=== PATIENT | male | born 1935 | race Caucasian/White ===

== ENCOUNTER 2018-12-23 10:27 | Inpatient (IN) | payer OTHER ==
[2018-12-23] MEDS ORDERED: ACETAMINOPHEN 1000 MG/100 ML VIAL (NON FORMULARY) IVPB ONE (11:28)
[2018-12-23] MEDS ORDERED: ACETAMINOPHEN INJECTION 100 ML IVPB ONE (11:37)
--- NOTE | 2018-12-23 11:45 | PDOC ---
Documentation entered by Tomer Gilbert SCRIBE, acting as scribe for Robert Carvalho MD. Robert Carvalho MD: This documentation has been prepared by the Vladimir jessica Xhesika, SCRIBE, under my direction and personally reviewed by me in its entirety. I confirm that the documentation accurately reflects all work, treatment, procedures, and medical decision making performed by me. History of Present Illness - General Chief Complaint: Redness To Affected Area Stated Complaint: RIGHT LEG PAIN Time Seen by Provider: 12/23/18 10:53 History Source: Patient Exam Limitations: No Limitations - History of Present Illness Initial Comments: 12/23/18 11:31 The patient is an 83 year old male with a significant PMH of HTN, NIDDM, Afib, CAD, [place], BPH, Dementia, DVT, malignant neoplasm of skin, and Hard of Hearing who presents to the emergency department [facility] from [facility] for several months of RLE pain, erythema and edema. Patient notes he is being seen at a wound care clinic (does not remember location), but they have only been applying bandages to his wounds. Pt denies being on any abx. Today, pt states that the pain in his R foot became excruciating, prompting his visit to the ED. The patient denies chest pain, shortness of breath, headache and dizziness, fever, chills, cough, nausea, vomiting. Allergies: NKDA Past History - Past Medical History Allergies/Adverse Reactions: Allergies Allergy/AdvReac Type Severity Reaction Status Date / Time No Known Allergies Allergy Verified 12/23/18 11:08 Home Medications: Ambulatory Orders Ascorbic Acid 500 mg PO DAILY 12/23/18 Aspirin 81 mg PO DAILY 12/23/18 Furosemide [Lasix] 20 mg PO DAILY 12/23/18 Gabapentin [Neurontin] 300 mg PO DAILY 12/23/18 Insulin Glargine,Hum.rec.anlog [Basaglar Kwikpen U-100] 100 unit SQ HS 12/23/18 Levothyroxine [Synthroid -] 112 mcg PO DAILY 12/23/18 Metoprolol Succinate 50 mg PO DAILY 12/23/18 Multivit-Min/Iron/Folic Acid/K [Multi-Day Plus Minerals Tablet] 1 tab PO DAILY 12/23/18 Oxycodone HCl/Acetaminophen [Percocet 5-325 mg Tablet] 1 tab PO DAILY 12/23/18 Warfarin Sodium 4 mg PO HS 12/23/18 - Psycho Social/Smoking Cessation Hx Smoking History: Never smoked Hx Alcohol Use: No Drug/Substance Use Hx: No Review of Systems - Review of Systems Able to Perform ROS?: Yes Comments:: 12/23/18 11:36 GENERAL/CONSTITUTIONAL: No fever or chills. No weakness. HEAD, EYES, EARS, NOSE AND THROAT: No change in vision. No ear pain or discharge. No sore throat. CARDIOVASCULAR: No chest pain, no shortness of breath, no loss of consciousness RESPIRATORY: No cough, wheezing, or hemoptysis. GASTROINTESTINAL: No nausea, vomiting, diarrhea or constipation. GENITOURINARY: No dysuria, frequency, or change in urination. MUSCULOSKELETAL: No joint or muscle swelling or pain. No neck or back pain. SKIN: + RLE pain, erythema and edema NEUROLOGIC: No vertigo, no change in strength/sensation. ENDOCRINE: No increased thirst. No abnormal weight change. HEMATOLOGIC/LYMPHATIC: No anemia, easy bleeding, or history of blood clots. ALLERGIC/IMMUNOLOGIC: No hives or skin allergy. *Physical Exam - Vital Signs Last Vital Signs Temp Pulse Resp BP Pulse Ox 98 F 98 H 17 142/85 99 12/23/18 10:49 12/23/18 10:49 12/23/18 10:49 12/23/18 10:49 12/23/18 10:49 - Physical Exam Comments: 12/23/18 11:37 GENERAL: Awake, alert, and fully oriented, in no acute distress. HEAD: No signs of trauma EYES: PERRLA, EOMI, sclera anicteric, conjunctiva clear ENT: Auricles normal inspection, hearing grossly normal, nares patent, oropharynx clear without exudates. Moist mucosa NECK: Nontender, no stepoffs, Normal ROM, supple, no lymphadenopathy, JVD, or masses LUNGS: Breath sounds equal, clear to auscultation bilaterally. No wheezes, and no crackles HEART: Regular rate and rhythm, normal S1 and S2, no murmurs, rubs or gallops ABDOMEN: Soft, nontender, normoactive bowel sounds. No guarding, no rebound. No masses EXTREMITIES: BLE erythema extending from foot to cadet R>L, R foot with crusting wounds, induration without fluctuance, also ulcer on R cadet with serosanguinous drainage, DP pulses diminished bilaterally NEUROLOGICAL: Cranial nerves II through XII intact. 5/5 strength and sensation in all extremities, Normal speech, normal gait, normal cerebellar function SKIN: Warm, Dry, normal turgor, no rashes or lesions noted. ED Treatment Course - LABORATORY CBC & Chemistry Diagram: 12/23/18 11:51 12/23/18 11:51 Medical Decision Making - Medical Decision Making 12/23/18 11:48 83 M with chronic RLE redness and swelling, now with worsening pain. On exam, pt has severe cellulitis or R foot extending up cadet, with open ulcers. No fluctuance to suggest abscess. Pt has h/o DVT, so will obtain venous dopplers. Also has h/o afib with diminished pulses, so will obtain arterial doppler as well. - Labs - Arterial + venous dopplers - XR RLE - Abx - Admit 12/23/18 15:26 Venous doppler negative for DVT. Arterial doppler with athersclerosis but no occlusion. XR negative for gas Vanc/zosyn given. 12/23/18 15:47 Pt admitted to hospitalist Discharge - Discharge Information Problems reviewed: Yes Clinical Impression/Diagnosis: Cellulitis, Leg swelling, Foot pain - Admission Yes - Follow up/Referral Referrals: Tank Florentino [Primary Care Provider] - - Patient Discharge Instructions - Post Discharge Activity
[2018-12-23] MEDS ORDERED: VANCOMYCIN 1 GM in D5W (PRE-DOCKED) 1,000 MG/250 ML IVPB ONE (11:49)
[2018-12-23] MEDS ORDERED: PIPERACILLIN/TAZOB 4.5 GM 4.5 GM/100 ML BAG IVPB ONE ×2 (11:49→11:56)
[2018-12-23] MEDS ORDERED: VANCOMYCIN 1 GRAM (PRE-DOCKED) 1,000 MG/250 ML BAG IVPB ONE (11:56)
[2018-12-23 12:07] LABS: BASO % 0.5 % (0-2.0); EOS % 3.1 % (0-4.5); HEMATOCRIT 32.1 % (35.4-49); HEMOGLOBIN 10.7 GM/dL (11.7-16.9); MCH 31.2 pg (25.7-33.7); MCHC 33.4 g/dl (32.0-35.9); MEAN CELL VOLUME 93.6 fl (80-96); MEAN PLT VOLUME 7.4 fl (7.5-11.1); MONO % 9.9 % (3.8-10.2); NEUT % 66.5 % (42.8-82.8); PLATELET COUNT 154 K/MM3 (134-434); RBC 3.43 M/mm3 (4.00-5.60); RDW 15.1 % (11.9-15.9); WHITE BLOOD COUNT 4.8 K/mm3 (4.0-10.0)
[2018-12-23 12:20] LABS: INR 1.54 (0.83-1.09); PROTHROMBIN TIME (PATIENT) 18.3 SEC (9.7-13.0)
[2018-12-23 12:36] LABS: ALBUMIN 3.2 g/dl (3.4-5.0); BILIRUBIN,TOTAL 0.9 mg/dL (0.2-1); BLOOD UREA NITROGEN 17.6 mg/dL (7-18); CALCIUM 8.7 mg/dL (8.5-10.1); CREATININE 1.4 mg/dL (0.55-1.3)
--- NOTE | 2018-12-23 15:04 | EKG ---
Test Reason : Blood Pressure : / mmHG Vent. Rate : 087 BPM Atrial Rate : 117 BPM P-R Int : 000 ms QRS Dur : 092 ms QT Int : 388 ms P-R-T Axes : 000 020 040 degrees QTc Int : 466 ms POOR DATA QUALITY, INTERPRETATION MAY BE ADVERSELY AFFECTED ATRIAL FIBRILLATION CANNOT RULE OUT ANTERIOR INFARCT , AGE UNDETERMINED ABNORMAL ECG NO PREVIOUS ECGS AVAILABLE Confirmed by ALBERT KEARNEY, ROBERTO ([id number]) on 12/23/2018 3:04:39 PM Referred By: Confirmed By:ROBERTO PRICE MD
--- NOTE | 2018-12-23 16:48 | HP ---
CHIEF COMPLAINT: RLE pain PCP: Unknown From [facility] HISTORY OF PRESENT ILLNESS: 83M w/ pmhx significant for HTN, IDDM, Afib (on Coumadin), CAD, WI, BPH, dementia, DVT, malignant neoplasm of the skin, difficulty hearing presents in the ED for worsening RLE pain. States he has had chronic b/l leg pain, redness, ulcers, and swelling for at least the past year and currently goes to a wound care clinic at [facility] for routine care. Pt presents in the hospital today mainly for worsening pain in the RLE over the past 3 days making him unable to ambulate with is rolling walker. Also states that at the wound care clinic, they have only done dressing changes at least once a month. Denies ever taking antibiotics in the past. Denie recent trauma to his R leg. Admits to taking Tylenol PRN for the pain, but with minimal symptomatic relief. Currently, he lives at [facility] and takes his daily medication administered daily by an employee of the facility. Says he has seen a vascular surgeon from [place] in the past, but does not remember the name. Denies oleary/d, f/c, recent falls, chest pain, sob, urinary/bowel symptoms. Admits to some abdominal distension that started about 3 months ago. ER course was notable for: (1) VS stable, WBC wnl, Cr 1.4, CRP 5.7, Lac wnl (2) IV Vanc/Zosyn (3) Imaging studies: * R Tib/fib xray: vascular calcifications, otherwise unremarkable. * R Foot/ankle xray: Some attempted calcaneal spurring, otherwise unremarkable. * R arterial duplex: Mod atherosclerotic disease but no hemodynamically significant stenosis. * R venous duplex: No DVT. Recent Travel: Denies PAST MEDICAL HISTORY: As per HPI PAST SURGICAL HISTORY: R hip surgery Spine surgery Social History: Smoking: Denies Alcohol: Denies Drugs: Denies Lives in [facility] Retired; used to work in [employer] ; has 2 children Allergies No Known Allergies Allergy (Verified 12/23/18 11:08) HOME MEDICATIONS: Home Medications Medication Instructions Recorded Ascorbic Acid 500 mg PO DAILY 12/23/18 Aspirin 81 mg PO DAILY 12/23/18 Furosemide [Lasix] 20 mg PO DAILY 12/23/18 Gabapentin [Neurontin] 300 mg PO DAILY 12/23/18 Insulin Glargine,Hum.rec.anlog 100 unit SQ HS 12/23/18 [Basaglar Kwikpen U-100] Levothyroxine [Synthroid -] 112 mcg PO DAILY 12/23/18 Metoprolol Succinate 50 mg PO DAILY 12/23/18 Multivit-Min/Iron/Folic Acid/K 1 tab PO DAILY 12/23/18 [Multi-Day Plus Minerals Tablet] Oxycodone HCl/Acetaminophen 1 tab PO DAILY 12/23/18 [Percocet 5-325 mg Tablet] Warfarin Sodium 4 mg PO HS 12/23/18 REVIEW OF SYSTEMS CONSTITUTIONAL: Absent: fever, chills, diaphoresis, generalized weakness, malaise, loss of appetite, weight change HEENT: Absent: rhinorrhea, nasal congestion, throat pain, throat swelling, difficulty swallowing, mouth swelling, ear pain, eye pain, visual changes CARDIOVASCULAR: Absent: chest pain, syncope, palpitations, irregular heart rate, lightheadedness , peripheral edema RESPIRATORY: Absent: cough, shortness of breath, dyspnea with exertion, orthopnea, wheezing, stridor, hemoptysis GASTROINTESTINAL: Absent: abdominal pain, abdominal distension, nausea, vomiting, diarrhea, constipation, melena, hematochezia GENITOURINARY: Absent: dysuria, frequency, urgency, hesitancy, hematuria, flank pain, genital pain MUSCULOSKELETAL: +R lower extremity pain/redness/swelling Absent: myalgia, arthralgia, joint swelling, back pain, neck pain SKIN: Absent: rash, itching, pallor HEMATOLOGIC/IMMUNOLOGIC: Absent: easy bleeding, easy bruising, lymphadenopathy, frequent infections ENDOCRINE: Absent: unexplained weight gain, unexplained weight loss, heat intolerance, cold intolerance NEUROLOGIC: Absent: headache, focal weakness or paresthesias, dizziness, unsteady gait, seizure, mental status changes, bladder or bowel incontinence PSYCHIATRIC: Absent: anxiety, depression, suicidal or homicidal ideation, hallucinations. PHYSICAL EXAMINATION Vital Signs - 24 hr 12/23/18 12/23/18 10:49 15:03 Temperature 98 F 99.2 F Pulse Rate 98 H Pulse Rate [ 75 Radial] Respiratory 17 18 Rate Blood Pressure 142/85 Blood Pressure 136/93 [Right Arm] O2 Sat by Pulse 99 98 Oximetry (%) GENERAL: Pleasant, elderly male. NAD. AAOx3. HEENT: AT/NC. EOMI. Facial symmetry noted. Without teeth. NECK: Normal ROM. Supple, NT. No LAD, JVD. LUNGS: CTA B/L. No wheezes noted. Symmetric chest rise. HEART: Irregularly, irregular. No murmurs noted. ABDOMEN: Soft, NT. Mod abdominal distension. MUSCULOSKELETAL: 5/5 muscle strength in b/l upper extremities. 5/5 hip flexion, knee flexion/extension. +3/5 R plantarflexion/dorsiflexion. +4/5 L plantarflexion/dorsiflexion. Limited ROM in R plantar/dorsiflexion due to pain. UPPER EXTREMITIES: 2+ pulses, warm, well-perfused. No cyanosis. No clubbing. No peripheral edema. LOWER EXTREMITIES: 2+ dorsalis pedis pulses, warm, well-perfused. NEUROLOGICAL: Cranial nerves II-XII intact. Normal speech. Normal gait. PSYCHIATRIC: Cooperative. Good eye contact. Appropriate mood and affect. SKIN: R lower extremity- tender to touch, with superficial ulcers on both plantar and dorsal surface of R foot. +yellow crusting seen. Onychomycosis. Erythema/redness from mid-cadet extending down to toes, R >> L. +swelling, sensation intact. L lower extremity- scaly skin, onychomycosis. Erythema/ redness from mid-cadet extending down to toes. +swelling, sensation intact. Laboratory Results - last 24 hr 12/23/18 12/23/18 12/23/18 11:51 11:51 11:51 WBC 4.8 RBC 3.43 L Hgb 10.7 L Hct 32.1 L MCV 93.6 MCH 31.2 MCHC 33.4 RDW 15.1 Plt Count 154 MPV 7.4 L Absolute Neuts (auto) 3.2 Neutrophils % 66.5 Lymphocytes % 20.0 Monocytes % 9.9 Eosinophils % 3.1 Basophils % 0.5 Nucleated RBC % 0 ESR PT with INR INR PTT (Actin FS) 36.8 H Sodium 141 Potassium 4.0 Chloride 105 Carbon Dioxide 29 Anion Gap 6 L BUN 17.6 Creatinine 1.4 H Est GFR (CKD-EPI)AfAm 53.85 Est GFR (CKD-EPI)NonAf 46.46 Random Glucose 94 Lactic Acid Calcium 8.7 Total Bilirubin 0.9 AST 16 ALT 17 Alkaline Phosphatase 112 C-Reactive Protein Total Protein 6.0 L Albumin 3.2 L 12/23/18 12/23/18 12/23/18 11:51 11:51 11:51 WBC RBC Hgb Hct MCV MCH MCHC RDW Plt Count MPV Absolute Neuts (auto) Neutrophils % Lymphocytes % Monocytes % Eosinophils % Basophils % Nucleated RBC % ESR PT with INR 18.30 H INR 1.54 H PTT (Actin FS) Sodium Potassium Chloride Carbon Dioxide Anion Gap BUN Creatinine Est GFR (CKD-EPI)AfAm Est GFR (CKD-EPI)NonAf Random Glucose Lactic Acid 1.0 Calcium Total Bilirubin AST ALT Alkaline Phosphatase C-Reactive Protein 5.7 H Total Protein Albumin 12/23/18 11:51 WBC RBC Hgb Hct MCV MCH MCHC RDW Plt Count MPV Absolute Neuts (auto) Neutrophils % Lymphocytes % Monocytes % Eosinophils % Basophils % Nucleated RBC % ESR 55 H PT with INR INR PTT (Actin FS) Sodium Potassium Chloride Carbon Dioxide Anion Gap BUN Creatinine Est GFR (CKD-EPI)AfAm Est GFR (CKD-EPI)NonAf Random Glucose Lactic Acid Calcium Total Bilirubin AST ALT Alkaline Phosphatase C-Reactive Protein Total Protein Albumin ASSESSMENT/PLAN: 83M w/ pmhx significant for HTN, IDDM, Afib (on Coumadin), CAD, WI, BPH, dementia, DVT, malignant neoplasm of the skin, difficulty hearing presents in the ED for worsening RLE pain. #RLE cellulitis; Does not clinically appear to be septic; WBC wnl, afebrile -Given empiric IV Vanc/Zosyn in the ED -R knee and foot xray unremarkable for soft tissue air; no crepitus on exam. Also low suspicion of compartment syndrome. -BCx pending -Wound care consulted -ID consulted; agree to cont with IV Vanc/Zosyn -Cont home Perocet for pain #IDDM; hold home meds -Levemir 15U HS -BGMs/ISS ACHS #DEISY vs. CKD; Cr 1.4, baseline unknown -call PCP for baseline Cr #Abd distension; Abd exam did not show signs of acute abd, but will order CTAP as this is new distension per patient that started only 3 months ago. #Hx of Afib; EKG showed Afib, HR in 80s. Rate controlled. -Given subtherapeutic INR, will give 5 mg tonight Cont home med: Toprol XL 50 QD #Neuropathy; Cont home med: Gabapentin 300 #Prophylaxis DVT- On Coumadin FEN -PO hydration -recheck lytes in AM -Diabetic diet Dispo -admit to med-surg Visit type - Emergency Visit Emergency Visit: Yes ED Registration Date: 12/23/18 Care time: The patient presented to the Emergency Department on the above date and was hospitalized for further evaluation of their emergent condition. - New Patient This patient is new to me today: Yes Date on this admission: 12/23/18 - Critical Care Critical Care patient: No ATTENDING PHYSICIAN STATEMENT I saw and evaluated the patient. I reviewed the resident's note and discussed the case with the resident. I agree with the resident's findings and plan as documented. SUBJECTIVE: OBJECTIVE: ASSESSMENT AND PLAN:
[2018-12-23] MEDS ORDERED: WARFARIN NA 2 MG TABLET (UD) PO SCH (18:00)
--- NOTE | 2018-12-23 18:08 | PN ---
Teaching Attending Note Name of Resident: Geno Chavarria ATTENDING PHYSICIAN STATEMENT I saw and evaluated the patient. I reviewed the resident's note and discussed the case with the resident. I agree with the resident's findings and plan as documented. SUBJECTIVE: CC: R leg pain HPI : 83 y/o man withh/o HTN, Dm, CAD, s/p NV, DVT, A fib, BPH, skin cancer, hearing difficulty, and chronic LE erythema and edema who presented with worsening pain in R leg and foot x past 2 weeks. pain started to get worse, 2 weeks ago an d continued to worsen. He reports purulent discharge, but no fever. he gets dressing changes biweekly at [facility] wound care clinic. he denies recent trauma. he lives [place]. He reprots his abdomen is becoming more distended in past 3 months OBJECTIVE: NAD, awake, alert, cooperative HEENT: MMM, no facial droop, round equal pupils, everted L lower eye lid. CV: RRR, no MRG . Lungs: CTAB Abd: protuberant, TTP in LLQ. NL BS . no organomegaly Ext: b/l legs with erythema from below the knee to ankles. R leg with increased warmth over erythematous areas, small areas of skin oozing yellowish liquid . R foot with erythema on front with increased tenderness, superficial ulcers. DP 2+ b/l. nl sensation over feet. can't move toes on R due to pain, but moves ankle up and down with limited range of motion. yellow crusted areas on foot . EKG reviewed. A fib with rate of 87. no st or TW changes. NL axis ASSESSMENT AND PLAN: 83 y/o man with h/o HTN, Dm, CAD, s/p NV, DVT, A fib, BPH, skin cancer, hearing difficulty, and chronic LE erythema and edema who presented with worsening pain in R leg and foot x past 2 weeks 1- Cellullitis of R LE: No signs of sepsis. No signs of compartment syndrome . pulses and sensation are preserved. - received vanco and zosyn in ER . - will cont zosyn. Cr cl 47 %, vanco received at 1 pm, will last him 24 hrs, for ID to decide in Am . - resident to call ID - blood cx sent - wound care eval 2- Dm : low sugar at presentation . will repeat . - will cont lower dose of Levemir at HS - SSI 3- DEISY vs CKD: not sure of his cr baseline - will hold lasix today - need to confirm his Cr base line with JESSICA KEARNEY 4- Increased abdominal distention x [address] scan 5- H/o A fib: on coumadin, with subtherpeutic INR. - will give 5 mg today - cont toprol Dispo: HLOC
[2018-12-23] MEDS: WARFARIN NA 5 MG TABLET (UD) PO SCH (18:55)
[2018-12-23] MEDS ORDERED: PIPERACILLIN/TAZOBACTAM 3.375 GM VIAL IVPB ONE (20:40)
[2018-12-23] MEDS ORDERED: INSULIN (NOVOLOG) ASPART 100 UNITS/ML 10ML VIAL ONE (20:40)
[2018-12-23] MEDS ORDERED: DEXTROSE 5%-WATER - 50 ML IVPB ONE (20:40)
[2018-12-23] MEDS: INSULIN SLIDING SCALE (NOVOLOG) 1 VIAL SQ SCH (21:54)
[2018-12-23] MEDS: INSULIN (LEVEMIR) 100 UNITS/ML UNITS SQ SCH (21:56)
[2018-12-23] MEDS: PIPERACILLIN/TAZOB 3.375 GM 3.375 GM in DEXTROSE 5%-WATER - 50 ML IVPB SCH (22:00)
[2018-12-24] MEDS ORDERED: PIPERACILLIN/TAZOBACTAM 3.375 GM VIAL IVPB ONE ×2 (02:39→09:29)
[2018-12-24] MEDS ORDERED: DEXTROSE 5%-WATER - 50 ML IVPB ONE ×2 (02:39→09:29)
[2018-12-24] MEDS: PIPERACILLIN/TAZOB 3.375 GM 3.375 GM in DEXTROSE 5%-WATER - 50 ML IVPB SCH ×3 (03:00→16:08)
[2018-12-24] MEDS: INSULIN SLIDING SCALE (NOVOLOG) 1 VIAL SQ SCH ×3 (06:06→17:05)
[2018-12-24] MEDS: LEVOTHYROXINE NA 112 MCG TABLET (FP) PO SCH (06:36)
[2018-12-24 08:49] LABS: BASO % 0.6 % (0-2.0); EOS % 4.2 % (0-4.5); HEMOGLOBIN 10.7 GM/dL (11.7-16.9); LYMPH % 22.7 % (8-40); MCH 31.4 pg (25.7-33.7); MCHC 33.5 g/dl (32.0-35.9); MEAN CELL VOLUME 93.6 fl (80-96); MEAN PLT VOLUME 7.6 fl (7.5-11.1); MONO % 7.1 % (3.8-10.2); NEUT % 65.4 % (42.8-82.8); PLATELET COUNT 164 K/MM3 (134-434); RBC 3.42 M/mm3 (4.00-5.60); WHITE BLOOD COUNT 4.1 K/mm3 (4.0-10.0)
[2018-12-24 09:33] LABS: INR 1.36 (0.83-1.09); PROTHROMBIN TIME (PATIENT) 16.1 SEC (9.7-13.0)
[2018-12-24 09:39] LABS: BLOOD UREA NITROGEN 15.2 mg/dL (7-18); CALCIUM 8.4 mg/dL (8.5-10.1); CREATININE 1.4 mg/dL (0.55-1.3); POTASSIUM 4.1 mmol/L (3.5-5.1)
[2018-12-24] MEDS ORDERED: FUROSEMIDE 20 MG TABLET (FP) PO SCH (10:00)
[2018-12-24] MEDS: GABAPENTIN 300 MG CAPSULE (FP) PO SCH (10:21)
[2018-12-24] MEDS: oxyCODONE HCL 5 MG TABLET PO PRN (10:21)
[2018-12-24] MEDS: ASPIRIN 81 MG CHEWABLE TABLETS PO SCH (10:21)
[2018-12-24] MEDS: MULTIVITAMINS THER W-MINERALS COMBO TABLET (FP) PO SCH (10:21)
[2018-12-24] MEDS: ASCORBIC ACID 500 MG TABLET (FP) PO SCH (10:21)
--- NOTE | 2018-12-24 10:32 | CONSULT ---
- Consultation REQUESTING PROVIDER: CONSULT REQUEST: We have been asked to surgically evaluate this patient for Rt leg wounds/cellulitis PCP:Melvin Louis HISTORY OF PRESENT ILLNESS: 83yo M was consulted to vascular/wound service for evaluation of RLE wounds and cellulitis. Pt has some baseline dementia/memory issues so history was limited. Pt states that he has has chronic wound issues on his RLE for several years, he was going to [facility] wound care clinic, but didn't really feel it was helping. Unsure if pt continues to go that wound care clinic. Pt states that the pain and redness has gotten worse and was sent to the ED from his shelter. Pt denies any history of vascular disease or surgery. Pt denies tobacco use. PMHx: Afib, HTN, Hypothyroidism, DM Home Medications Medication Instructions Recorded Ascorbic Acid 500 mg PO DAILY 12/23/18 Aspirin 81 mg PO DAILY 12/23/18 Furosemide [Lasix] 20 mg PO DAILY 12/23/18 Gabapentin [Neurontin] 300 mg PO DAILY 12/23/18 Insulin Glargine,Hum.rec.anlog 100 unit SQ HS 12/23/18 [Basaglar Kwikpen U-100] Levothyroxine [Synthroid -] 112 mcg PO DAILY 12/23/18 Metoprolol Succinate 50 mg PO DAILY 12/23/18 Multivit-Min/Iron/Folic Acid/K 1 tab PO DAILY 12/23/18 [Multi-Day Plus Minerals Tablet] Oxycodone HCl/Acetaminophen 1 tab PO DAILY 12/23/18 [Percocet 5-325 mg Tablet] Warfarin Sodium 4 mg PO HS 12/23/18 Allergies Allergy/AdvReac Type Severity Reaction Status Date / Time No Known Allergies Allergy Verified 12/23/18 11:08 PHYSICAL EXAM: GENERAL: Awake, alert, in no acute distress. HEAD: Normal with no signs of trauma. EYES: PERRL, sclera anicteric, conjunctiva clear. NECK: Normal ROM LUNGS: Breathing comfortably No accessory muscle use. HEART: Irregularly irregular UPPER EXTREMITIES: 2+ pulses, warm, well-perfused. No cyanosis. No peripheral edema. LOWER EXTREMITIES: dopplarable pulses, warm, well-perfused. No calf tenderness. RLE +1 edema, healing ulceration posterior calf, erythema from distal knee down , dorsal foot shows chronic skin changes, ulcerations, scaling (similar to venous stasis dermatitis) NEUROLOGICAL: Normal speech, gait not observed. PSYCH: Cooperative. Good eye contact. Appropriate mood and affect. SKIN: Warm, dry, normal turgor, no rashes or lesions noted. Vital Signs Temperature 98.6 F 12/24/18 06:25 Pulse Rate 79 12/24/18 06:25 Respiratory Rate 18 12/24/18 06:25 Blood Pressure 127/67 12/24/18 06:25 O2 Sat by Pulse Oximetry (%) 98 12/23/18 21:00 Lab Results WBC 4.1 K/mm3 (4.0-10.0) 12/24/18 08:08 RBC 3.42 M/mm3 (4.00-5.60) L 12/24/18 08:08 Hgb 10.7 GM/dL (11.7-16.9) L 12/24/18 08:08 Hct 32.0 % (35.4-49) L 12/24/18 08:08 MCV 93.6 fl (80-96) 12/24/18 08:08 MCHC 33.5 g/dl (32.0-35.9) 12/24/18 08:08 RDW 15.0 % (11.9-15.9) 12/24/18 08:08 Plt Count 164 K/MM3 (134-434) 12/24/18 08:08 Sodium 139 mmol/L (136-145) 12/24/18 08:08 Potassium 4.1 mmol/L (3.5-5.1) 12/24/18 08:08 Chloride 105 mmol/L (98-107) 12/24/18 08:08 Carbon Dioxide 24 mmol/L (21-32) 12/24/18 08:08 Anion Gap 10 MMOL/L (8-16) 12/24/18 08:08 BUN 15.2 mg/dL (7-18) 12/24/18 08:08 Creatinine 1.4 mg/dL (0.55-1.3) H 12/24/18 08:08 Random Glucose 84 mg/dL (74-106) 12/24/18 08:08 Calcium 8.4 mg/dL (8.5-10.1) L 12/24/18 08:08 INR 1.36 (0.83-1.09) H 12/24/18 08:30 Problem List - Problems (1) Cellulitis Assessment/Plan: Plan -no need for acute surgical intervention at this time -continue abx as per med/ID, would recommend compression dressing once cellulitis resolved, for now just do dry clean dressing. -offered to pt to come to [facility] wound care clinic as was not satisified with [facility], pt stated he would consider. -please contact vascular team if any changes. Pt discussed with Dr. Santos, who agrees with plan Code(s): L03.90 - CELLULITIS, UNSPECIFIED (2) Venous stasis dermatitis of right lower extremity Code(s): I87.2 - VENOUS INSUFFICIENCY (CHRONIC) (PERIPHERAL)
[2018-12-24] MEDS ORDERED: VANCOMYCIN 1 GRAM (PRE-DOCKED) 1,000 MG/250 ML BAG IVPB SCH (13:00)
[2018-12-24 13:17] VITALS: BMI 24.6
--- NOTE | 2018-12-24 14:21 | PN ---
Progress Note, Physician History of Present Illness: ID CONSULT DICTATED CELLULITIS LE CHRONIC VENOUS STASIS DERMATITIS AZOTEMIA NIDDM AWAIT C/S EMPIRIC VANCOMYCIN/ CEFTRIAXONE LOCAL WOUND CARE - Current Medication List Current Medications: Active Medications Ascorbic Acid (Vitamin C -) 500 mg PO DAILY [facility] Last Admin: 12/24/18 10:21 Dose: 500 mg Aspirin (Asa -) 81 mg PO DAILY [facility] Last Admin: 12/24/18 10:21 Dose: 81 mg Gabapentin (Neurontin -) 300 mg PO DAILY [facility] Last Admin: 12/24/18 10:21 Dose: 300 mg Vancomycin HCl (Vancomycin (Pre-Docked)) 1,000 mg in 250 mls @ 166.667 mls/hr IVPB Q24H DANIELA; Protocol Piperacillin Sod/Tazobactam (Sod 3.375 gm/ Dextrose) 50 mls @ 100 mls/hr IVPB Q6H DANIELA; Protocol Piperacillin Sod/Tazobactam (Sod 3.375 gm/ Dextrose) 50 mls @ 100 mls/hr IVPB Q6H-IV DANIELA; Protocol Stop: 12/24/18 15:29 Last Admin: 12/24/18 10:24 Dose: 100 mls/hr Insulin Aspart (Novolog Vial Sliding Scale -) 1 vial SQ ACHS [facility]; Protocol Last Admin: 12/24/18 12:27 Dose: Not Given Insulin Detemir (Levemir Vial) 15 units SQ HS [facility] Last Admin: 12/23/18 21:56 Dose: Not Given Levothyroxine Sodium (Synthroid -) 112 mcg PO DAILY@0700 [facility] Last Admin: 12/24/18 06:36 Dose: 112 mcg Metoprolol Succinate (Toprol Xl -) 50 mg PO DAILY [facility] Last Admin: 12/24/18 10:21 Dose: 50 mg Multivitamins/Minerals (Theragran-M) 1 each PO DAILY [facility] Last Admin: 12/24/18 10:21 Dose: 1 each Oxycodone HCl (Roxicodone -) 5 mg PO Q24H PRN PRN Reason: pain 4-6 Last Admin: 12/24/18 10:21 Dose: 5 mg Warfarin Sodium (Coumadin -) 5 mg PO DAILY@1800 [facility] Last Admin: 12/23/18 18:55 Dose: 5 mg - Objective Vital Signs: Vital Signs Temperature 98.6 F 12/24/18 06:25 Pulse Rate 79 12/24/18 06:25 Respiratory Rate 18 12/24/18 06:25 Blood Pressure 127/67 12/24/18 06:25 O2 Sat by Pulse Oximetry (%) 98 12/23/18 21:00 Labs: CBC, BMP 12/24/18 08:08 12/24/18 08:08 INR, PTT INR 1.36 (0.83-1.09) H 12/24/18 08:30
[2018-12-24] MEDS ORDERED: DEXTROSE 5%-WATER 100 ML IVPB ONE (15:00)
[2018-12-24] MEDS: CEFTRIAXONE 2 GM in DEXTROSE 5%-WATER 100 ML IVPB SCH (15:02)
--- NOTE | 2018-12-24 15:14 | PN ---
Physical Exam: SUBJECTIVE: Patient seen and examined 83M w/ pmhx significant for HTN, IDDM, Afib (on Coumadin), CAD, SD, BPH, dementia, DVT, malignant neoplasm of the skin, difficulty hearing presents in the ED for worsening RLE pain. Currently, pt is stable, no issues, c/o or symptoms. Admits to pain on the right foot but otherwise in usual state of health. Afebrile. OBJECTIVE: Vital Signs Period Temp Pulse Resp BP Sys/Quarles Pulse Ox Last 24 Hr 98.0 F-98.8 F 79-95 18-20 127-147/57-88 96-98 GENERAL: The patient is awake, alert, and fully oriented, in no acute distress. EYES: PERRL, extraocular movements intact ENT: moist mucous membranes. NECK: supple. No LAD, no carotid bruit LUNGS: Breath sounds equal, clear to auscultation bilaterally, no wheezes, no crackles, no accessory muscle use. HEART: Regular rate and irregular rhythm, S1, S2 without murmur, rub or gallop. ABDOMEN: Distended, Soft, nontender, normoactive bowel sounds, no guarding EXTREMITIES: 2+ pulses, warm, RLE: erythematous, swollen, and dry w/ ulceration on the plantar surface, medial ankle and posterior leg. LLE: erythamatous, swollen NEUROLOGICAL: Cranial nerves II through XII grossly intact. SKIN: Warm, dry, normal turgor, Laboratory Results - last 24 hr CBC,CMP WBC 4.1 K/mm3 (4.0-10.0) 12/24/18 08:08 RBC 3.42 M/mm3 (4.00-5.60) L 12/24/18 08:08 Hgb 10.7 GM/dL (11.7-16.9) L 12/24/18 08:08 Hct 32.0 % (35.4-49) L 12/24/18 08:08 MCV 93.6 fl (80-96) 12/24/18 08:08 MCH 31.4 pg (25.7-33.7) 12/24/18 08:08 MCHC 33.5 g/dl (32.0-35.9) 12/24/18 08:08 RDW 15.0 % (11.9-15.9) 12/24/18 08:08 Plt Count 164 K/MM3 (134-434) 12/24/18 08:08 MPV 7.6 fl (7.5-11.1) 12/24/18 08:08 Absolute Neuts (auto) 2.7 K/mm3 (1.5-8.0) 12/24/18 08:08 Neutrophils % 65.4 % (42.8-82.8) 12/24/18 08:08 Lymphocytes % 22.7 % (8-40) 12/24/18 08:08 Monocytes % 7.1 % (3.8-10.2) 12/24/18 08:08 Eosinophils % 4.2 % (0-4.5) 12/24/18 08:08 Basophils % 0.6 % (0-2.0) 12/24/18 08:08 Nucleated RBC % 0 % (0-0) 12/24/18 08:08 ESR 55 mm/hr (0-20) H 12/23/18 11:51 Sodium 139 mmol/L (136-145) 12/24/18 08:08 Potassium 4.1 mmol/L (3.5-5.1) 12/24/18 08:08 Chloride 105 mmol/L (98-107) 12/24/18 08:08 Carbon Dioxide 24 mmol/L (21-32) 12/24/18 08:08 Anion Gap 10 MMOL/L (8-16) 12/24/18 08:08 BUN 15.2 mg/dL (7-18) 12/24/18 08:08 Creatinine 1.4 mg/dL (0.55-1.3) H 12/24/18 08:08 Est GFR (CKD-EPI)AfAm 53.85 12/24/18 08:08 Est GFR (CKD-EPI)NonAf 46.46 12/24/18 08:08 POC Glucometer 106 UNITS (80-120) 12/24/18 12:17 Random Glucose 84 mg/dL (74-106) 12/24/18 08:08 Lactic Acid 1.0 mmol/L (0.4-2.0) 12/23/18 11:51 Calcium 8.4 mg/dL (8.5-10.1) L 12/24/18 08:08 Total Bilirubin 0.9 mg/dL (0.2-1) 12/23/18 11:51 AST 16 U/L (15-37) 12/23/18 11:51 ALT 17 U/L (13-61) 12/23/18 11:51 Alkaline Phosphatase 112 U/L (45-117) 12/23/18 11:51 C-Reactive Protein 5.7 MG/DL (0.00-0.3) H 12/23/18 11:51 Total Protein 6.0 g/dl (6.4-8.2) L 12/23/18 11:51 Albumin 3.2 g/dl (3.4-5.0) L 12/23/18 11:51 Active Medications Home Medications Medication Instructions Recorded Ascorbic Acid 500 mg PO DAILY 12/23/18 Aspirin 81 mg PO DAILY 12/23/18 Furosemide [Lasix] 20 mg PO DAILY 12/23/18 Gabapentin [Neurontin] 300 mg PO DAILY 12/23/18 Insulin Glargine,Hum.rec.anlog 15 unit SQ HS 12/23/18 [Basaglar Kwikpen U-100] Levothyroxine [Synthroid -] 112 mcg PO AM 12/23/18 Metoprolol Succinate 50 mg PO DAILY 12/23/18 Multivit-Min/Iron/Folic Acid/K 1 tab PO DAILY 12/23/18 [Multi-Day Plus Minerals Tablet] Oxycodone HCl/Acetaminophen 1 tab PO DAILY 12/23/18 [Percocet 5-325 mg Tablet] Warfarin Sodium 4 mg PO HS 12/23/18 Current Medications Ascorbic Acid (Vitamin C -) 500 mg PO DAILY [facility] Last Admin: 12/24/18 10:21 Dose: 500 mg Aspirin (Asa -) 81 mg PO DAILY [facility] Last Admin: 12/24/18 10:21 Dose: 81 mg Gabapentin (Neurontin -) 300 mg PO DAILY [facility] Last Admin: 12/24/18 10:21 Dose: 300 mg Vancomycin HCl (Vancomycin (Pre-Docked)) 1,000 mg in 250 mls @ 166.667 mls/hr IVPB Q24H [facility]; Protocol Ceftriaxone Sodium 2 gm/ (Dextrose) 100 mls @ 200 mls/hr IVPB DAILY [facility]; Protocol Last Admin: 12/24/18 15:02 Dose: 200 mls/hr Insulin Aspart (Novolog Vial Sliding Scale -) 1 vial SQ ACHS [facility]; Protocol Last Admin: 12/24/18 12:27 Dose: Not Given Insulin Detemir (Levemir Vial) 15 units SQ HS [facility] Last Admin: 12/23/18 21:56 Dose: Not Given Levothyroxine Sodium (Synthroid -) 112 mcg PO DAILY@0700 [facility] Last Admin: 12/24/18 06:36 Dose: 112 mcg Metoprolol Succinate (Toprol Xl -) 50 mg PO DAILY [facility] Last Admin: 12/24/18 10:21 Dose: 50 mg Multivitamins/Minerals (Theragran-M) 1 each PO DAILY [facility] Last Admin: 12/24/18 10:21 Dose: 1 each Oxycodone HCl (Roxicodone -) 5 mg PO Q24H PRN PRN Reason: pain 4-6 Last Admin: 12/24/18 10:21 Dose: 5 mg Warfarin Sodium (Coumadin -) 5 mg PO DAILY@1800 [facility] Last Admin: 12/23/18 18:55 Dose: 5 mg Microbiology 12/23/18 11:51 Blood - Peripheral Venous Blood Culture - Preliminary NO GROWTH OBTAINED AFTER 24 HOURS, INCUBATION TO CONTINUE FOR 4 DAYS. 12/23/18 11:51 Blood - Peripheral Venous Blood Culture - Preliminary NO GROWTH OBTAINED AFTER 24 HOURS, INCUBATION TO CONTINUE FOR 4 DAYS. ASSESSMENT/PLAN: 83M w/ pmhx significant for HTN, IDDM, Afib (on Coumadin), CAD, SD, BPH, dementia, DVT, malignant neoplasm of the skin, difficulty hearing presents in the ED for worsening RLE pain. #RLE cellulitis; WBC wnl, afebrile, no tachy -Given empiric IV Vanc D2 and ceftriaxone D1- as per ID -R knee and foot xray- negative -Also low suspicion of compartment syndrome. -BCx- no growth -Wound care consulted- no surgery at this time, continue abx as per med/ID, would recommend compression dressing once cellulitis resolved, for now just do dry clean dressing. f/u outpt at the [facility] -Vanco trough friday 1 pm #IDDM; hold home meds -Levemir 15U HS -BGMs/ISS ACHS #DEISY vs. CKD; Cr 1.4, baseline unknown -call PCP for baseline Cr #Abd distension -new distension per patient that started only 3 months ago. -Abd exam did not show signs of acute abd -CTA/P- no acute changes #Hx of Afib -EKG showed Afib, HR in 80s. Rate controlled. -Given subtherapeutic INR, will give 5 mg tonight -Cont home med: Toprol XL 50 QD #Neuropathy; -Cont home med: Gabapentin 300 #DVT Prophylaxis- On Coumadin FEN -PO hydration -Diabetic diet Dispo -monitor mentation, lytes and regular dressing changes Visit type - Emergency Visit Emergency Visit: Yes ED Registration Date: 12/23/18 Care time: The patient presented to the Emergency Department on the above date and was hospitalized for further evaluation of their emergent condition. - New Patient This patient is new to me today: Yes Date on this admission: 12/27/18 - Critical Care Critical Care patient: No - Discharge Referral Referred to [facility] Med P.C.: No ATTENDING PHYSICIAN STATEMENT I saw and evaluated the patient. I reviewed the resident's note and discussed the case with the resident. I agree with the resident's findings and plan as documented. SUBJECTIVE: OBJECTIVE: ASSESSMENT AND PLAN:
--- NOTE | 2018-12-24 15:52 | CONS ---
DATE OF CONSULTATION: DATE OF DICTATION: 12/24/2018 INFECTIOUS DISEASE CONSULTATION HISTORY OF PRESENT ILLNESS: The patient is an 83-year-old male who was evaluated for cellulitis of the lower extremities. He has a history of chronic venous stasis, dermatitis of the lower extremities. He is followed at the [facility] wound care center. He reports developing worsening right lower extremity pain and swelling, prompting him to present to the emergency room. He was evaluated in the emergency room, where he was noted to have cellulitis of the right lower extremity. A Doppler exam was performed and was negative for DVT. He was empirically treated with vancomycin and Zosyn. He denies any purulent drainage, no complaint of fevers or chills. He denies history of serious soft tissue infection requiring hospitalization or history of MRSA. PAST MEDICAL HISTORY: Positive for noninsulin dependent diabetes mellitus, hypertension, dementia, atrial fibrillation, coronary artery disease, myocardial infarction, BPH. ALLERGIES: No known allergies. MEDICATION: Include vancomycin, Zosyn, vitamin C, aspirin, Neurontin, Coumadin. SOCIAL HISTORY: He resides in an assisted living facility. No active tobacco or alcohol use. SYSTEMS REVIEW: Neurologic: No loss of consciousness, seizure activity, focal weakness. Cardiac: Negative for chest pain or palpitations. Respiratory: Negative for cough or sputum production. Gastrointestinal: Negative vomiting or diarrhea. Genitourinary: Negative for urinary tract infection. LABORATORY DATA: White count 4.1, hematocrit 32.0, platelet count 164, creatinine 1.4. Blood cultures are pending. PHYSICAL EXAMINATION: General: On exam, he is awake and alert, he is not acutely toxic appearing. Vital signs: Temperature 98.6, blood pressure 127/65, pulse 78 regular, respirations 18 per minute. HEENT: Sclerae anicteric. Cardiovascular: Heart sounds S1, S2. Lungs: Clear. Abdomen: Soft, nontender. Extremities: Examination of the lower extremities, bilateral lower extremities stasis dermatitis. There is hyperpigmented area noted of the left lower extremity from the mid tibia to the foot. Examination of the right foot, there is chronic venous stasis dermatitis with superimposed erythema and warmth present below the knee to the foot. There is no purulent drainage, no weepage, no crepitus, fluctuance, or lymphangitic streaking. IMPRESSION: 1. Cellulitis, right lower extremity. 2. Chronic venous stasis dermatitis lower extremities bilaterally. 3. Azotemia. 4. Noninsulin dependent diabetes mellitus. Await culture results. Empiric antibiotic coverage with vancomycin and ceftriaxone. Elevation. Analgesics. Local wound care. Will follow. Thank you for the kind referral. TERESA PEDRAZA M.D. BANDAR/[id number]
[2018-12-24] MEDS: VANCOMYCIN 1 GRAM (PRE-DOCKED) 1,000 MG/250 ML BAG IVPB SCH (15:54)
--- NOTE | 2018-12-24 17:28 | PN ---
Teaching Attending Note Name of Resident: Heather Mcneill ATTENDING PHYSICIAN STATEMENT I saw and evaluated the patient. I reviewed the resident's note and discussed the case with the resident. I agree with the resident's findings and plan as documented. SUBJECTIVE: No fever or chills. leg still hurts. no N/V. OBJECTIVE: NAD, awake, alert, cooperative HEENT: MMM, everted L lower eye lid. CV: irreg irreg , no MRG . Lungs: CTAB Abd: protuberant, TTP in LLQ. NL BS . no organomegaly Ext: He declined dressing removal off his R leg and foot. L leg with hyperpigmentation and nl warmth. ASSESSMENT AND PLAN: 83 y/o man with h/o HTN, Dm, CAD, s/p AK, DVT, A fib, BPH, skin cancer, hearing difficulty, and chronic LE erythema and edema who presented with worsening pain in R leg and foot x past 2 weeks 1- Cellullitis of R LE: declined exam of leg today. - Abx changed per ID to CTX and vanco - check vanco trough on Friday before dose - vascular note appreciated . dry dressing for now 2- DM : low sugar at presentation . - cont levemir and SSI 3-CKD: last Cr in [facility] 1.3 on 09/17 - will resume his lasix 4- Increased abdominal distention x [address] neg . enlarged prostate can be followed as outpt 5- H/o A fib: on coumadin, with subtherpeutic INR. - cont 5 mg of coumadin - cont toprol Dispo: HLOC ASSESSMENT AND PLAN:
[2018-12-24] MEDS: WARFARIN NA 5 MG TABLET (UD) PO SCH (18:53)
[2018-12-24] MEDS ORDERED: PATIENT'S OWN MEDICATION (NON-FORMULARY) (Insulin Glargine,Hum.Rec.Anlog [Basaglar Kwikpen SQ SCH (22:00)
[2018-12-24] MEDS: INSULIN (LEVEMIR) 100 UNITS/ML UNITS SQ SCH ×2 (22:27→22:32)
[2018-12-25] MEDS: oxyCODONE HCL 5 MG TABLET PO PRN (05:38)
[2018-12-25] MEDS: INSULIN SLIDING SCALE (NOVOLOG) 1 VIAL SQ SCH ×3 (06:08→19:55)
[2018-12-25] MEDS: LEVOTHYROXINE NA 112 MCG TABLET (FP) PO SCH (06:08)
[2018-12-25 08:31] LABS: EOS % 4.5 % (0-4.5); HEMOGLOBIN 11.3 GM/dL (11.7-16.9); LYMPH % 23.8 % (8-40); MCH 33.3 pg (25.7-33.7); MCHC 35.4 g/dl (32.0-35.9); MEAN CELL VOLUME 94.1 fl (80-96); MONO % 7.3 % (3.8-10.2); NEUT % 63.4 % (42.8-82.8); PLATELET COUNT 64 K/MM3 (134-434); RDW 14.8 % (11.9-15.9); WHITE BLOOD COUNT 4.2 K/mm3 (4.0-10.0)
[2018-12-25 09:07] LABS: BILIRUBIN,TOTAL 0.8 mg/dL (0.2-1); BLOOD UREA NITROGEN 16.6 mg/dL (7-18); CALCIUM 8.4 mg/dL (8.5-10.1); CREATININE 1.4 mg/dL (0.55-1.3); POTASSIUM 4.7 mmol/L (3.5-5.1); TOT PROT 6.1 g/dl (6.4-8.2)
[2018-12-25 09:28] LABS: INR 1.45 (0.83-1.09); PROTHROMBIN TIME (PATIENT) 17.2 SEC (9.7-13.0)
[2018-12-25] MEDS ORDERED: DEXTROSE 5%-WATER 100 ML IVPB ONE (10:06)
[2018-12-25] MEDS: GABAPENTIN 300 MG CAPSULE (FP) PO SCH (10:13)
[2018-12-25] MEDS: ASPIRIN 81 MG CHEWABLE TABLETS PO SCH (10:13)
[2018-12-25] MEDS: ASCORBIC ACID 500 MG TABLET (FP) PO SCH (10:13)
[2018-12-25] MEDS: CEFTRIAXONE 2 GM in DEXTROSE 5%-WATER 100 ML IVPB SCH (10:13)
[2018-12-25] MEDS: MULTIVITAMINS THER W-MINERALS COMBO TABLET (FP) PO SCH (10:14)
--- NOTE | 2018-12-25 12:35 | PN ---
Progress Note (short form) - Note Progress Note: Seen at bedside in NAD Afebrile , VSS WBC count wnl Longstanding pt in wound care center Denies CP SOB Asked to see pt for possible I&D of foot Non palpable pedal pulses Skin is friable (+) edema and (+) erythema NO crepitus on palpation NO fluctuance noted on exam NO GAS ON XRAY Impression: Diabetic foot infection PLAN:D/C NPO order Agree with MRI first to better assess CONT IVABX and wound care Thank you for courtesy of this consult
--- NOTE | 2018-12-25 16:11 | PN ---
Progress Note, Physician Chief Complaint: AWAKE BUT LETHARGIC IN BED NO ACUTE DISTRESS AFEBRILE History of Present Illness: ID CONSULT DICTATED CELLULITIS LE CHRONIC VENOUS STASIS DERMATITIS AZOTEMIA NIDDM AWAIT C/S EMPIRIC VANCOMYCIN/ CEFTRIAXONE LOCAL WOUND CARE - Current Medication List Current Medications: Active Medications Ascorbic Acid (Vitamin C -) 500 mg PO DAILY [facility] Last Admin: 12/25/18 10:13 Dose: 500 mg Aspirin (Asa -) 81 mg PO DAILY [facility] Last Admin: 12/25/18 10:13 Dose: 81 mg Gabapentin (Neurontin -) 300 mg PO DAILY [facility] Last Admin: 12/25/18 10:13 Dose: 300 mg Vancomycin HCl (Vancomycin (Pre-Docked)) 1,000 mg in 250 mls @ 166.667 mls/hr IVPB Q24H [facility]; Protocol Last Admin: 12/24/18 15:54 Dose: 166.667 mls/hr Ceftriaxone Sodium 2 gm/ (Dextrose) 100 mls @ 200 mls/hr IVPB DAILY [facility]; Protocol Last Admin: 12/25/18 10:13 Dose: 200 mls/hr Insulin Aspart (Novolog Vial Sliding Scale -) 1 vial SQ TIDAC [facility]; Protocol Last Admin: 12/25/18 11:19 Dose: Not Given Insulin Detemir (Levemir Vial) 15 units SQ HS [facility] Last Admin: 12/24/18 22:32 Dose: Not Given Levothyroxine Sodium (Synthroid -) 112 mcg PO DAILY@0700 [facility] Last Admin: 12/25/18 06:08 Dose: 112 mcg Metoprolol Succinate (Toprol Xl -) 50 mg PO DAILY [facility] Last Admin: 12/25/18 11:09 Dose: 50 mg Multivitamins/Minerals (Theragran-M) 1 each PO DAILY [facility] Last Admin: 12/25/18 10:14 Dose: 1 each Oxycodone HCl (Roxicodone -) 5 mg PO Q24H PRN PRN Reason: pain 4-6 Last Admin: 12/25/18 05:38 Dose: 5 mg Warfarin Sodium (Coumadin -) 5 mg PO DAILY@1800 [facility] Last Admin: 12/24/18 18:53 Dose: 5 mg - Objective Vital Signs: Vital Signs Temperature 98.6 F 12/25/18 14:00 Pulse Rate 78 12/25/18 14:00 Respiratory Rate 18 12/25/18 14:00 Blood Pressure 120/68 12/25/18 14:00 O2 Sat by Pulse Oximetry (%) 98 12/24/18 09:00 Constitutional: Yes: No Distress Eyes: Yes: Conjunctiva Clear Cardiovascular: Yes: Regular Rate and Rhythm, S1, S2 Respiratory: Yes: CTA Bilaterally Gastrointestinal: Yes: Normal Bowel Sounds. No: Tenderness Extremities: Yes: Other (+ VENOUS STASIS DERMATITITS LE + ERYTHEMA/WARMTH R LE ) Edema: Yes Labs: CBC, BMP 12/25/18 07:50 12/25/18 07:50 INR, PTT INR 1.45 (0.83-1.09) H 12/25/18 07:40 Assessment/Plan CELLULITIS R LE CHRONIC VENOUS STASIS DERMATITIS AZOTEMIA NIDDM CONTINUE VANCOMYCIN/ CEFTRIAXONE
--- NOTE | 2018-12-25 16:19 | PN ---
Physical Exam: SUBJECTIVE: Patient seen and examined 83M w/ pmhx significant for HTN, IDDM, Afib (on Coumadin), CAD, [place], BPH, dementia, DVT, malignant neoplasm of the skin, difficulty hearing presents in the ED for worsening RLE pain. Today pt is stable, no issues, c/o or symptoms. Admits to pain on the right foot but otherwise in usual state of health. Afebrile. Cooperative. OBJECTIVE: Vital Signs Last Vital Signs Temp Pulse Resp BP Pulse Ox 98.6 F 78 18 120/68 98 12/25/18 14:00 12/25/18 14:00 12/25/18 14:00 12/25/18 14:00 12/24/18 09:00 GENERAL: The patient is awake, alert, and fully oriented, in no acute distress. EYES: PERRL, extraocular movements intact ENT: moist mucous membranes. NECK: supple. No LAD, no carotid bruit LUNGS: Breath sounds equal, clear to auscultation bilaterally, no wheezes, no crackles, no accessory muscle use. HEART: Regular rate and irregular rhythm, S1, S2 without murmur, rub or gallop. ABDOMEN: Distended, Soft, nontender, normoactive bowel sounds, no guarding EXTREMITIES: 2+ pulses, warm, RLE: erythematous, swollen, and dry w/ ulceration on the plantar surface, medial ankle and posterior leg. LLE: erythamatous, swollen NEUROLOGICAL: Cranial nerves II through XII grossly intact. SKIN: Warm, dry, normal turgor, Laboratory Results - last 24 hr CBC,CMP WBC 4.2 K/mm3 (4.0-10.0) 12/25/18 07:50 RBC 3.40 M/mm3 (4.00-5.60) L 12/25/18 07:50 Hgb 11.3 GM/dL (11.7-16.9) L 12/25/18 07:50 Hct 32.0 % (35.4-49) L 12/25/18 07:50 MCV 94.1 fl (80-96) 12/25/18 07:50 MCH 33.3 pg (25.7-33.7) 12/25/18 07:50 MCHC 35.4 g/dl (32.0-35.9) 12/25/18 07:50 RDW 14.8 % (11.9-15.9) 12/25/18 07:50 Plt Count 64 K/MM3 (134-434) L D 12/25/18 07:50 MPV 9.0 fl (7.5-11.1) D 12/25/18 07:50 Absolute Neuts (auto) 2.7 K/mm3 (1.5-8.0) 12/25/18 07:50 Neutrophils % 63.4 % (42.8-82.8) 12/25/18 07:50 Lymphocytes % 23.8 % (8-40) 12/25/18 07:50 Monocytes % 7.3 % (3.8-10.2) 12/25/18 07:50 Eosinophils % 4.5 % (0-4.5) 12/25/18 07:50 Basophils % 1.0 % (0-2.0) 12/25/18 07:50 Nucleated RBC % 0 % (0-0) 12/25/18 07:50 ESR 55 mm/hr (0-20) H 12/23/18 11:51 Sodium 138 mmol/L (136-145) 12/25/18 07:50 Potassium 4.7 mmol/L (3.5-5.1) 12/25/18 07:50 Chloride 106 mmol/L (98-107) 12/25/18 07:50 Carbon Dioxide 25 mmol/L (21-32) 12/25/18 07:50 Anion Gap 6 MMOL/L (8-16) L 12/25/18 07:50 BUN 16.6 mg/dL (7-18) 12/25/18 07:50 Creatinine 1.4 mg/dL (0.55-1.3) H 12/25/18 07:50 Est GFR (CKD-EPI)AfAm 53.85 12/25/18 07:50 Est GFR (CKD-EPI)NonAf 46.46 12/25/18 07:50 POC Glucometer 192 UNITS (80-120) 12/25/18 11:17 Random Glucose 87 mg/dL (74-106) 12/25/18 07:50 Lactic Acid 1.0 mmol/L (0.4-2.0) 12/23/18 11:51 Calcium 8.4 mg/dL (8.5-10.1) L 12/25/18 07:50 Total Bilirubin 0.8 mg/dL (0.2-1) 12/25/18 07:50 AST 27 U/L (15-37) 12/25/18 07:50 ALT 16 U/L (13-61) 12/25/18 07:50 Alkaline Phosphatase 102 U/L (45-117) 12/25/18 07:50 C-Reactive Protein 5.7 MG/DL (0.00-0.3) H 12/23/18 11:51 Total Protein 6.1 g/dl (6.4-8.2) L 12/25/18 07:50 Albumin 3.0 g/dl (3.4-5.0) L 12/25/18 07:50 Active Medications Home Medications Medication Instructions Recorded Ascorbic Acid 500 mg PO DAILY 12/23/18 Aspirin 81 mg PO DAILY 12/23/18 Furosemide [Lasix] 20 mg PO DAILY 12/23/18 Gabapentin [Neurontin] 300 mg PO DAILY 12/23/18 Insulin Glargine,Hum.rec.anlog 15 unit SQ HS 12/23/18 [Basaglar Kwikpen U-100] Levothyroxine [Synthroid -] 112 mcg PO AM 12/23/18 Metoprolol Succinate 50 mg PO DAILY 12/23/18 Multivit-Min/Iron/Folic Acid/K 1 tab PO DAILY 12/23/18 [Multi-Day Plus Minerals Tablet] Oxycodone HCl/Acetaminophen 1 tab PO DAILY 12/23/18 [Percocet 5-325 mg Tablet] Warfarin Sodium 4 mg PO HS 12/23/18 Current Medications Ascorbic Acid (Vitamin C -) 500 mg PO DAILY [facility] Last Admin: 12/25/18 10:13 Dose: 500 mg Aspirin (Asa -) 81 mg PO DAILY [facility] Last Admin: 12/25/18 10:13 Dose: 81 mg Gabapentin (Neurontin -) 300 mg PO DAILY [facility] Last Admin: 12/25/18 10:13 Dose: 300 mg Vancomycin HCl (Vancomycin (Pre-Docked)) 1,000 mg in 250 mls @ 166.667 mls/hr IVPB Q24H [facility]; Protocol Last Admin: 12/24/18 15:54 Dose: 166.667 mls/hr Ceftriaxone Sodium 2 gm/ (Dextrose) 100 mls @ 200 mls/hr IVPB DAILY [facility]; Protocol Last Admin: 12/25/18 10:13 Dose: 200 mls/hr Insulin Aspart (Novolog Vial Sliding Scale -) 1 vial SQ TIDAC [facility]; Protocol Last Admin: 12/25/18 11:19 Dose: Not Given Insulin Detemir (Levemir Vial) 15 units SQ HS [facility] Last Admin: 12/24/18 22:32 Dose: Not Given Levothyroxine Sodium (Synthroid -) 112 mcg PO DAILY@0700 [facility] Last Admin: 12/25/18 06:08 Dose: 112 mcg Metoprolol Succinate (Toprol Xl -) 50 mg PO DAILY [facility] Last Admin: 12/25/18 11:09 Dose: 50 mg Multivitamins/Minerals (Theragran-M) 1 each PO DAILY [facility] Last Admin: 12/25/18 10:14 Dose: 1 each Oxycodone HCl (Roxicodone -) 5 mg PO Q24H PRN PRN Reason: pain 4-6 Last Admin: 12/25/18 05:38 Dose: 5 mg Warfarin Sodium (Coumadin -) 5 mg PO DAILY@1800 [facility] Last Admin: 12/24/18 18:53 Dose: 5 mg ASSESSMENT/PLAN: 83M w/ pmhx significant for HTN, IDDM, Afib (on Coumadin), CAD, [place], BPH, dementia, DVT, malignant neoplasm of the skin, difficulty hearing presents in the ED for worsening RLE pain. #RLE cellulitis; WBC wnl, afebrile, no tachy -Given empiric IV Vanc D3 and ceftriaxone D2- as per ID -R knee and foot xray- negative -Wound care consulted- no surgery at this time, continue abx as per med/ID, would recommend compression dressing once cellulitis resolved, for now just do dry clean dressing. f/u outpt at the [facility] wound [facility] -Vanco trough friday 1 pm -MRI of LE ordered #IDDM; hold home meds -Levemir 15U HS -BGMs/ISS ACHS #DEISY vs. CKD; Cr 1.4, baseline unknown -call PCP for baseline Cr #Abd distension -new distension per patient that started only 3 months ago. -Abd exam did not show signs of acute abd -CTA/P- no acute changes #Hx of Afib -EKG showed Afib, HR in 80s. Rate controlled. -Given subtherapeutic INR, will give 5 mg tonight -Cont home med: Toprol XL 50 QD #Neuropathy; -Cont home med: Gabapentin 300 #DVT Prophylaxis- On Coumadin FEN -PO hydration -Diabetic diet Dispo -monitor mentation, and regular dressing changes, MRI f/u Visit type - Emergency Visit Emergency Visit: Yes ED Registration Date: 12/23/18 Care time: The patient presented to the Emergency Department on the above date and was hospitalized for further evaluation of their emergent condition. - New Patient This patient is new to me today: Yes Date on this admission: 12/25/18 - Critical Care Critical Care patient: No - Discharge Referral Referred to [facility] Med P.C.: No ATTENDING PHYSICIAN STATEMENT I saw and evaluated the patient. I reviewed the resident's note and discussed the case with the resident. I agree with the resident's findings and plan as documented. SUBJECTIVE: OBJECTIVE: ASSESSMENT AND PLAN:
[2018-12-25] MEDS: VANCOMYCIN 1 GRAM (PRE-DOCKED) 1,000 MG/250 ML BAG IVPB SCH (16:24)
--- NOTE | 2018-12-25 18:37 | PN ---
Teaching Attending Note Name of Resident: Heather Mcneill ATTENDING PHYSICIAN STATEMENT I saw and evaluated the patient. I reviewed the resident's note and discussed the case with the resident. I agree with the resident's findings and plan as documented. SUBJECTIVE: No fever or chills . cont to have pain in foot and leg . no SOB or CP OBJECTIVE: NAD, awake, alert, cooperative HEENT: MMM, everted L lower eye lid. CV: irreg irreg , no MRG . Lungs: CTAB Ext: R leg with improved erythema, improved erythema on dorsal foot. a possible collection on plantar surface of frontal foot at level of 2,3rd toes. tenderness to plapation on foot and toes. LLE hyperpigmentain ASSESSMENT AND PLAN: 83 y/o man with h/o HTN, Dm, CAD, s/p [place], DVT, A fib, BPH, skin cancer, hearing difficulty, and chronic LE erythema and edema who presented with worsening pain in R leg and foot x past 2 weeks 1- Cellullitis of R LE: - cont ceftriaxone and vanco - vanco trough tomorroe - spoke to Dr. [place] in a consultation for possible collection on foot. - MRI of the foot 2- DM: - cont levemir and SSI 3-CKD: Cr at base line - cont lasix - might benefot form low dose ACEi , will add if cr remains stable 5- H/o A fib: on coumadin, with subtherpeutic INR. - cont 5 mg of coumadin. if INR low tomorrow , will increase to 6 mg - cont toprol Dispo: HLOC ASSESSMENT AND PLAN:
[2018-12-25] MEDS: WARFARIN NA 5 MG TABLET (UD) PO SCH (18:40)
[2018-12-25] MEDS: INSULIN (LEVEMIR) 100 UNITS/ML UNITS SQ SCH (21:26)
[2018-12-26 05:07] LABS: PH,URINE 7.5 (5.0-8.0); URINE APPEARANCE CLEAR; URINE BILIRUBIN NEGATIVE (NEGATIVE); URINE COLOR YELLOW; URINE GLUCOSE (UA) NEGATIVE (NEGATIVE); URINE KETONE NEGATIVE (NEGATIVE); URINE LEUK ESTERASE NEGATIVE (NEGATIVE); URINE NITRITE NEGATIVE (NEGATIVE); URINE PROTEIN NEGATIVE (NEGATIVE)
[2018-12-26] MEDS: INSULIN SLIDING SCALE (NOVOLOG) 1 VIAL SQ SCH ×3 (06:05→18:11)
[2018-12-26] MEDS: LEVOTHYROXINE NA 112 MCG TABLET (FP) PO SCH (06:06)
--- NOTE | 2018-12-26 07:49 | PN ---
Progress Note (short form) - Note Progress Note: Podiatry F/u: Seen/evaluated at bedside NAD. Pain to right foot persistent. Denies F/V/N/C/SOB /CP. AFebrile. MRI obtained yesterday evening. KAVYA: R foot: pedal pulses weak, TG wnl, CFT brisk to toes. There is fixed erythema to the lower leg with mild tenderness to palpation. There is a hyperkeratotic lesion sub-second metatarsal, tender to palpation, minimal fluctuance, no streaking cellulitis, no soft tissue crepitus, no purulence, no signs of acute infection. No lymphadenopathy. MRI: report pending (I do not appreciate a distinct collection) Imp: 83 year old diabetic male, venous stasis, cellulitis RLE 1. IV abx per ID 2. Continue local care 3. MRI Report pending 4. If MRI demonstrates collection, may have procedure bedside versus OR, depending on findings. 5. Will follow. Loida Montana DPM
[2018-12-26] MEDS: oxyCODONE HCL 5 MG TABLET PO PRN (08:21)
[2018-12-26 09:35] LABS: BASO % 0.8 % (0-2.0); HEMATOCRIT 33.5 % (35.4-49); HEMOGLOBIN 11.5 GM/dL (11.7-16.9); LYMPH % 28.4 % (8-40); MCH 31.7 pg (25.7-33.7); MCHC 34.4 g/dl (32.0-35.9); MEAN CELL VOLUME 92.2 fl (80-96); MEAN PLT VOLUME 7.5 fl (7.5-11.1); MONO % 7.6 % (3.8-10.2); NEUT % 59.2 % (42.8-82.8); PLATELET COUNT 200 K/MM3 (134-434); RBC 3.63 M/mm3 (4.00-5.60); RDW 15.2 % (11.9-15.9); WHITE BLOOD COUNT 4.3 K/mm3 (4.0-10.0)
[2018-12-26 09:52] LABS: ALBUMIN 3.3 g/dl (3.4-5.0); BILIRUBIN,TOTAL 0.7 mg/dL (0.2-1); BLOOD UREA NITROGEN 19.5 mg/dL (7-18); CALCIUM 8.7 mg/dL (8.5-10.1); CREATININE 1.4 mg/dL (0.55-1.3); POTASSIUM 4.2 mmol/L (3.5-5.1); TOT PROT 6.4 g/dl (6.4-8.2)
[2018-12-26] MEDS ORDERED: DEXTROSE 5%-WATER 100 ML IVPB ONE (09:58)
[2018-12-26] MEDS: CEFTRIAXONE 2 GM in DEXTROSE 5%-WATER 100 ML IVPB SCH (10:07)
[2018-12-26] MEDS: MULTIVITAMINS THER W-MINERALS COMBO TABLET (FP) PO SCH (11:08)
[2018-12-26] MEDS: ASCORBIC ACID 500 MG TABLET (FP) PO SCH (11:08)
[2018-12-26] MEDS: ASPIRIN 81 MG CHEWABLE TABLETS PO SCH (11:08)
[2018-12-26] MEDS: GABAPENTIN 300 MG CAPSULE (FP) PO SCH (11:08)
--- NOTE | 2018-12-26 13:02 | PN ---
Physical Exam: SUBJECTIVE: Patient seen and examined 83M w/ pmhx significant for HTN, IDDM, Afib (on Coumadin), CAD, AR, BPH, dementia, DVT, malignant neoplasm of the skin, difficulty hearing presents in the ED for worsening RLE pain is admitted for cellulitis of the RLE. Today pt is stable, no issues, c/o or symptoms. Admits to pain on the right foot but otherwise in usual state of health. Wound is examined, looks more improved compared to before. Will continue to examine. Afebrile. Cooperative. OBJECTIVE: Last Vital Signs Temp Pulse Resp BP Pulse Ox 98.5 F 94 H 20 124/66 95 12/26/18 11:03 12/26/18 11:03 12/26/18 11:03 12/26/18 11:12/26/18 09:51 GENERAL: The patient is awake, alert, and fully oriented, in no acute distress. EYES: PERRL, extraocular movements intact ENT: moist mucous membranes. NECK: supple. No LAD, no carotid bruit LUNGS: Breath sounds equal, clear to auscultation bilaterally, no wheezes, no crackles HEART: Regular rate and irregular rhythm, S1, S2 without murmur, rub or gallop. ABDOMEN: Distended, Soft, nontender, normoactive bowel sounds, no guarding EXTREMITIES: 2+ pulses, warm, RLE: erythematous, swollen, and dry w/ ulceration on the plantar surface, medial ankle and posterior leg. LLE: erythamatous, swollen NEUROLOGICAL: Cranial nerves II through XII grossly intact. Unable to move the RLE toes, but sensation is intact SKIN: Warm, dry, normal turgor, Laboratory Results - last 24 hr CBC,CMP WBC 4.3 K/mm3 (4.0-10.0) 12/26/18 08:35 RBC 3.63 M/mm3 (4.00-5.60) L 12/26/18 08:35 Hgb 11.5 GM/dL (11.7-16.9) L 12/26/18 08:35 Hct 33.5 % (35.4-49) L 12/26/18 08:35 MCV 92.2 fl (80-96) 12/26/18 08:35 MCH 31.7 pg (25.7-33.7) 12/26/18 08:35 MCHC 34.4 g/dl (32.0-35.9) 12/26/18 08:35 RDW 15.2 % (11.9-15.9) 12/26/18 08:35 Plt Count 200 K/MM3 (134-434) D 12/26/18 08:35 MPV 7.5 fl (7.5-11.1) D 12/26/18 08:35 Absolute Neuts (auto) 2.6 K/mm3 (1.5-8.0) 12/26/18 08:35 Neutrophils % 59.2 % (42.8-82.8) 12/26/18 08:35 Lymphocytes % 28.4 % (8-40) 12/26/18 08:35 Monocytes % 7.6 % (3.8-10.2) 12/26/18 08:35 Eosinophils % 4.0 % (0-4.5) 12/26/18 08:35 Basophils % 0.8 % (0-2.0) 12/26/18 08:35 Nucleated RBC % 0 % (0-0) 12/26/18 08:35 ESR 55 mm/hr (0-20) H 12/23/18 11:51 Sodium 140 mmol/L (136-145) 12/26/18 08:35 Potassium 4.2 mmol/L (3.5-5.1) 12/26/18 08:35 Chloride 106 mmol/L (98-107) 12/26/18 08:35 Carbon Dioxide 28 mmol/L (21-32) 12/26/18 08:35 Anion Gap 6 MMOL/L (8-16) L 12/26/18 08:35 BUN 19.5 mg/dL (7-18) H 12/26/18 08:35 Creatinine 1.4 mg/dL (0.55-1.3) H 12/26/18 08:35 Est GFR (CKD-EPI)AfAm 53.85 12/26/18 08:35 Est GFR (CKD-EPI)NonAf 46.46 12/26/18 08:35 POC Glucometer 98 UNITS (80-120) 12/26/18 12:17 Random Glucose 104 mg/dL (74-106) 12/26/18 08:35 Lactic Acid 1.0 mmol/L (0.4-2.0) 12/23/18 11:51 Calcium 8.7 mg/dL (8.5-10.1) 12/26/18 08:35 Total Bilirubin 0.7 mg/dL (0.2-1) 12/26/18 08:35 AST 20 U/L (15-37) 12/26/18 08:35 ALT 19 U/L (13-61) 12/26/18 08:35 Alkaline Phosphatase 107 U/L (45-117) 12/26/18 08:35 C-Reactive Protein 5.7 MG/DL (0.00-0.3) H 12/23/18 11:51 Total Protein 6.4 g/dl (6.4-8.2) 12/26/18 08:35 Albumin 3.3 g/dl (3.4-5.0) L 12/26/18 08:35 Active Medications Home Medications Medication Instructions Recorded Ascorbic Acid 500 mg PO DAILY 12/23/18 Aspirin 81 mg PO DAILY 12/23/18 Furosemide [Lasix] 20 mg PO DAILY 12/23/18 Gabapentin [Neurontin] 300 mg PO DAILY 12/23/18 Insulin Glargine,Hum.rec.anlog 15 unit SQ HS 12/23/18 [Basaglar Kwikpen U-100] Levothyroxine [Synthroid -] 112 mcg PO AM 12/23/18 Metoprolol Succinate 50 mg PO DAILY 12/23/18 Multivit-Min/Iron/Folic Acid/K 1 tab PO DAILY 12/23/18 [Multi-Day Plus Minerals Tablet] Oxycodone HCl/Acetaminophen 1 tab PO DAILY 12/23/18 [Percocet 5-325 mg Tablet] Warfarin Sodium 4 mg PO HS 12/23/18 Current Medications Ascorbic Acid (Vitamin C -) 500 mg PO DAILY [facility] Last Admin: 12/26/18 11:08 Dose: 500 mg Aspirin (Asa -) 81 mg PO DAILY [facility] Last Admin: 12/26/18 11:08 Dose: 81 mg Gabapentin (Neurontin -) 300 mg PO DAILY [facility] Last Admin: 12/26/18 11:08 Dose: 300 mg Vancomycin HCl (Vancomycin (Pre-Docked)) 1,000 mg in 250 mls @ 166.667 mls/hr IVPB Q24H DANIELA; Protocol Last Admin: 12/25/18 16:24 Dose: Not Given Ceftriaxone Sodium 2 gm/ (Dextrose) 100 mls @ 200 mls/hr IVPB DAILY [facility]; Protocol Last Admin: 12/26/18 10:07 Dose: 200 mls/hr Insulin Aspart (Novolog Vial Sliding Scale -) 1 vial SQ TIDAC [facility]; Protocol Last Admin: 12/26/18 12:24 Dose: Not Given Insulin Detemir (Levemir Vial) 15 units SQ HS [facility] Last Admin: 12/25/18 21:26 Dose: Not Given Levothyroxine Sodium (Synthroid -) 112 mcg PO DAILY@0700 [facility] Last Admin: 12/26/18 06:06 Dose: 112 mcg Metoprolol Succinate (Toprol Xl -) 50 mg PO DAILY [facility] Last Admin: 12/26/18 11:08 Dose: 50 mg Multivitamins/Minerals (Theragran-M) 1 each PO DAILY [facility] Last Admin: 12/26/18 11:08 Dose: 1 each Oxycodone HCl (Roxicodone -) 5 mg PO Q24H PRN PRN Reason: pain 4-6 Last Admin: 12/26/18 08:21 Dose: 5 mg Warfarin Sodium (Coumadin -) 5 mg PO DAILY@1800 [facility] Last Admin: 12/25/18 18:40 Dose: 5 mg ASSESSMENT/PLAN: 83M w/ pmhx significant for HTN, IDDM, Afib on coumadin, CAD, AR, BPH, dementia , DVT, malignant neoplasm of the skin, difficulty hearing presents in the ED for worsening RLE pain. #RLE cellulitis; WBC wnl, afebrile, no tachy Given empiric IV Vanc D4 and ceftriaxone D3- as per ID R knee and foot xray- negative MRI of LE- Cellulitis present, no osteomyelitis or abscess seen Wound care consulted- no surgery at this time, continue abx as per med/ID, would recommend compression dressing once cellulitis resolved, for now just do dry clean dressing. f/u outpt at the [facility] wound [facility] Vanco trough Today 2 pm PT 19 INR- 1.6 f/u with podiatry As per ID- vanc dose was missed yesterday- 12/25 #IDDM; hold home meds Levemir 15U HS BGMs ISS #CKD; Cr 1.4, baseline unknown #Abd distension new distension per patient that started only 3 months ago. Abd exam was normal CTA/P- no acute changes #Hx of Afib EKG showed Afib Given subtherapeutic INR, will give 5 mg Cont home med: Toprol XL 50 QD #Neuropathy; Cont home med: Gabapentin 300 #DVT Prophylaxis- Coumadin FEN PO hydration Diabetic diet Dispo monitor mentation, and regular dressing changes, f/u on INR Visit type - Emergency Visit Emergency Visit: Yes ED Registration Date: 12/23/18 Care time: The patient presented to the Emergency Department on the above date and was hospitalized for further evaluation of their emergent condition. - New Patient This patient is new to me today: Yes Date on this admission: 12/27/18 - Critical Care Critical Care patient: No - Discharge Referral Referred to [facility] Med P.C.: No ATTENDING PHYSICIAN STATEMENT I saw and evaluated the patient. I reviewed the resident's note and discussed the case with the resident. I agree with the resident's findings and plan as documented. SUBJECTIVE: OBJECTIVE: ASSESSMENT AND PLAN:
[2018-12-26 13:19] LABS: INR 1.6 (0.83-1.09)
--- NOTE | 2018-12-26 14:46 | PN ---
Progress Note (short form) - Note Progress Note: continues with leg pain right leg MRI no abscess Vital Signs Period Temp Pulse Resp BP Sys/Quarles Pulse Ox Last 24 Hr 98.1 F-98.9 F 20-94 18-90 118-155/56-76 95-96 cor-rrr llungs clear abd soft,nt ext +erythema RLE bilateral venous stasis changes CBC, BMP 12/26/18 08:35 12/26/18 08:35 Microbiology 12/23/18 11:51 Blood - Peripheral Venous Blood Culture - Preliminary NO GROWTH OBTAINED AFTER 72 HOURS, INCUBATION TO CONTINUE FOR 2 DAYS. 12/23/18 11:51 Blood - Peripheral Venous Blood Culture - Preliminary NO GROWTH OBTAINED AFTER 72 HOURS, INCUBATION TO CONTINUE FOR 2 DAYS. a/p cellulitis RLE- missed vancomycin yesterday continue vanco/ceftriaxone f/u with podiatry bilateral venous stasis
[2018-12-26] MEDS: VANCOMYCIN 1 GRAM (PRE-DOCKED) 1,000 MG/250 ML BAG IVPB SCH (15:51)
--- NOTE | 2018-12-26 17:13 | PN ---
Teaching Attending Note Name of Resident: Morales Owens (') ATTENDING PHYSICIAN STATEMENT I saw and evaluated the patient. I reviewed the resident's note and discussed the case with the resident. I agree with the resident's findings and plan as documented. SUBJECTIVE: pain in R foot continues. No fever or chills. No SOB . No ALCALA . OBJECTIVE: NAD, awake, alert, cooperative HEENT: MMM, everted L lower eye lid. CV: irreg irreg , no MRG . Lungs: CTAB Ext: R leg with improved erythema, improved erythema on dorsal foot. no collection on plantar aspect on foot today. tenderness to palpation on foot and toes. LLE hyperpigmentain ASSESSMENT AND PLAN: 83 y/o man with h/o HTN, Dm, CAD, s/p [place], DVT, A fib, BPH, skin cancer, hearing difficulty, and chronic LE erythema and edema who presented with worsening pain in R leg and foot x past 2 weeks 1- Cellullitis of R LE: improved - cont ceftriaxone and vanco - vanco trough 3.9 is not true as he missed his dose yesterday. will cont current dose and will get another trough before 3rd of 4th dose - MRI of the foot with no abscess of collection 2- DM: - cont levemir and SSI 3-CKD: Cr at base line - cont lasix - might benefit form low dose ACEi . add 2.5 of lisinopril daily 5- H/o A fib: on coumadin, with subtherpeutic INR. - increase coumadin to 6 mg QPM - cont toprol Dispo: HLOC
[2018-12-26] MEDS: WARFARIN NA 3 MG TABLET PO SCH (18:25)
[2018-12-26] MEDS: INSULIN (LEVEMIR) 100 UNITS/ML UNITS SQ SCH (21:37)
[2018-12-27] MEDS ORDERED: VANCOMYCIN 1 GRAM (PRE-DOCKED) 1,000 MG/250 ML BAG IVPB SCH ×2 (04:00→15:00)
[2018-12-27] MEDS: INSULIN SLIDING SCALE (NOVOLOG) 1 VIAL SQ SCH ×3 (06:07→16:41)
[2018-12-27] MEDS: LEVOTHYROXINE NA 112 MCG TABLET (FP) PO SCH (06:08)
[2018-12-27 07:43] LABS: BASO % 0.8 % (0-2.0); EOS % 4.6 % (0-4.5); LYMPH % 30.5 % (8-40); MCH 31.6 pg (25.7-33.7); MCHC 34.3 g/dl (32.0-35.9); MEAN CELL VOLUME 92.3 fl (80-96); MEAN PLT VOLUME 7.4 fl (7.5-11.1); MONO % 8.8 % (3.8-10.2); NEUT % 55.3 % (42.8-82.8); PLATELET COUNT 182 K/MM3 (134-434); RBC 3.47 M/mm3 (4.00-5.60); RDW 14.8 % (11.9-15.9); WHITE BLOOD COUNT 3.9 K/mm3 (4.0-10.0)
[2018-12-27 07:55] LABS: INR 1.69 (0.83-1.09)
[2018-12-27] MEDS: oxyCODONE HCL 5 MG TABLET PO PRN (08:30)
[2018-12-27] MEDS ORDERED: DEXTROSE 5%-WATER 100 ML IVPB ONE (09:06)
[2018-12-27] MEDS: ASCORBIC ACID 500 MG TABLET (FP) PO SCH (09:10)
[2018-12-27] MEDS: ASPIRIN 81 MG CHEWABLE TABLETS PO SCH (09:10)
[2018-12-27] MEDS: CEFTRIAXONE 2 GM in DEXTROSE 5%-WATER 100 ML IVPB SCH (09:10)
[2018-12-27] MEDS: GABAPENTIN 300 MG CAPSULE (FP) PO SCH (09:10)
[2018-12-27] MEDS: MULTIVITAMINS THER W-MINERALS COMBO TABLET (FP) PO SCH (09:10)
[2018-12-27] MEDS: LISINOPRIL 5 MG TABLET (FP) PO SCH (09:10)
[2018-12-27 09:12] LABS: ALBUMIN 3.1 g/dl (3.4-5.0); BILIRUBIN,TOTAL 0.4 mg/dL (0.2-1); BLOOD UREA NITROGEN 19.8 mg/dL (7-18); CALCIUM 8.5 mg/dL (8.5-10.1); CREATININE 1.4 mg/dL (0.55-1.3); POTASSIUM 4.2 mmol/L (3.5-5.1)
[2018-12-27] MEDS ORDERED: oxyCODONE HCL 5 MG TABLET PO PRN (09:59)
--- NOTE | 2018-12-27 12:50 | PN ---
Progress Note (short form) - Note Progress Note: feels improved MRI no abscess Vital Signs Period Temp Pulse Resp BP Sys/Quarles Pulse Ox Last 24 Hr 97.6 F-98.7 F 70-109 20-20 120-127/64-69 cor-rrr llungs clear abd soft,nt ext much less erythema foot with flaking skin CBC, BMP 12/27/18 07:13 12/27/18 07:13 Microbiology 12/23/18 11:51 Blood - Peripheral Venous Blood Culture - Preliminary NO GROWTH OBTAINED AFTER 96 HOURS, INCUBATION TO CONTINUE FOR 1 DAYS. 12/23/18 11:51 Blood - Peripheral Venous Blood Culture - Preliminary NO GROWTH OBTAINED AFTER 96 HOURS, INCUBATION TO CONTINUE FOR 1 DAYS. a/p cellulitis RLE-much improved continue vanco/ceftriaxone f/u with podiatry for wound care for foot suspect he will be ready for d/c in am bilateral venous stasis
--- NOTE | 2018-12-27 15:50 | PN ---
Progress Note (short form) - Note Progress Note: Subjective: No fever or chills. No ALCALA ,pain in foot controlled with pain meds Objective: Vital Signs: Last Vital Signs Temp Pulse Resp BP Pulse Ox 98.6 F 109 H 20 127/69 95 12/27/18 09:03 12/27/18 09:03 12/27/18 09:03 12/27/18 09:03 12/26/18 09:51 Laboratory Results - last 24 hr 12/26/18 12/26/18 12/27/18 17:12 21:15 05:30 WBC RBC Hgb Hct MCV MCH MCHC RDW Plt Count MPV Absolute Neuts (auto) Neutrophils % Lymphocytes % Monocytes % Eosinophils % Basophils % Nucleated RBC % PT with INR INR Sodium Potassium Chloride Carbon Dioxide Anion Gap BUN Creatinine Est GFR (CKD-EPI)AfAm Est GFR (CKD-EPI)NonAf POC Glucometer 115 112 88 Random Glucose Calcium Total Bilirubin AST ALT Alkaline Phosphatase Total Protein Albumin 12/27/18 12/27/18 12/27/18 07:13 07:13 07:13 WBC 3.9 L RBC 3.47 L Hgb 11.0 L Hct 32.0 L MCV 92.3 MCH 31.6 MCHC 34.3 RDW 14.8 Plt Count 182 MPV 7.4 L Absolute Neuts (auto) 2.1 Neutrophils % 55.3 Lymphocytes % 30.5 Monocytes % 8.8 Eosinophils % 4.6 H Basophils % 0.8 Nucleated RBC % 0 PT with INR 20.00 H INR 1.69 H Sodium 141 Potassium 4.2 Chloride 109 H Carbon Dioxide 25 Anion Gap 7 L BUN 19.8 H Creatinine 1.4 H Est GFR (CKD-EPI)AfAm 53.85 Est GFR (CKD-EPI)NonAf 46.46 POC Glucometer Random Glucose 89 Calcium 8.5 Total Bilirubin 0.4 AST 20 ALT 18 Alkaline Phosphatase 93 Total Protein 6.0 L Albumin 3.1 L 12/27/18 11:47 WBC RBC Hgb Hct MCV MCH MCHC RDW Plt Count MPV Absolute Neuts (auto) Neutrophils % Lymphocytes % Monocytes % Eosinophils % Basophils % Nucleated RBC % PT with INR INR Sodium Potassium Chloride Carbon Dioxide Anion Gap BUN Creatinine Est GFR (CKD-EPI)AfAm Est GFR (CKD-EPI)NonAf POC Glucometer 92 Random Glucose Calcium Total Bilirubin AST ALT Alkaline Phosphatase Total Protein Albumin Physical Exam: NAD, awake, alert, cooperative HEENT: MMM, everted L lower eye lid. CV: irreg irreg, no MRG . Lungs: CTAB Ext: R leg and foot with improved erythema. tenderness to palpation on foot and toes. LLE hyperpigmentation ASSESSMENT AND PLAN: 83 y/o man with h/o HTN, Dm, CAD, s/p [place], DVT, A fib, BPH, skin cancer, hearing difficulty, and chronic LE erythema and edema who presented with worsening pain in R leg and foot x past 2 weeks 1- Cellullitis of R LE: improved - cont ceftriaxone and vanco - MRI of the foot with no abscess of collection possible po abx tomorrow 2- DM: - has not been receiving levemir in evening . will hold and monitor on SSI - check A1c. 3-CKD: Cr at base line - cont lasix - cont 2.5 of lisinopril daily 5- H/o A fib: on coumadin, with subtherpeutic INR. - cont coumadin at 6 mg QPM( day 2) - cont toprol Dispo: HLOC Visit type - Emergency Visit Emergency Visit: Yes ED Registration Date: 12/23/18 Care time: The patient presented to the Emergency Department on the above date and was hospitalized for further evaluation of their emergent condition. - New Patient This patient is new to me today: No - Critical Care Critical Care patient: No
[2018-12-27] MEDS: WARFARIN NA 3 MG TABLET PO SCH (17:48)
[2018-12-28] MEDS: LEVOTHYROXINE NA 112 MCG TABLET (FP) PO SCH (06:16)
[2018-12-28] MEDS: INSULIN SLIDING SCALE (NOVOLOG) 1 VIAL SQ SCH ×3 (06:16→17:51)
[2018-12-28 08:16] LABS: BASO % 0.8 % (0-2.0); EOS % 4.3 % (0-4.5); HEMATOCRIT 33.2 % (35.4-49); HEMOGLOBIN 11.3 GM/dL (11.7-16.9); LYMPH % 24.6 % (8-40); MCH 31.6 pg (25.7-33.7); MCHC 33.9 g/dl (32.0-35.9); MEAN PLT VOLUME 7.6 fl (7.5-11.1); MONO % 7.9 % (3.8-10.2); NEUT % 62.4 % (42.8-82.8); PLATELET COUNT 201 K/MM3 (134-434); RBC 3.57 M/mm3 (4.00-5.60); RDW 15.1 % (11.9-15.9); WHITE BLOOD COUNT 4.7 K/mm3 (4.0-10.0)
[2018-12-28 09:08] LABS: INR 1.89 (0.83-1.09); PROTHROMBIN TIME (PATIENT) 22.4 SEC (9.7-13.0)
[2018-12-28] MEDS ORDERED: DEXTROSE 5%-WATER 100 ML IVPB ONE (10:11)
[2018-12-28] MEDS: ASPIRIN 81 MG CHEWABLE TABLETS PO SCH (10:36)
[2018-12-28] MEDS: ASCORBIC ACID 500 MG TABLET (FP) PO SCH (10:36)
[2018-12-28] MEDS: LISINOPRIL 5 MG TABLET (FP) PO SCH (10:36)
[2018-12-28] MEDS: GABAPENTIN 300 MG CAPSULE (FP) PO SCH (10:36)
[2018-12-28] MEDS: MULTIVITAMINS THER W-MINERALS COMBO TABLET (FP) PO SCH (10:36)
[2018-12-28] MEDS: CEFTRIAXONE 2 GM in DEXTROSE 5%-WATER 100 ML IVPB SCH (10:37)
--- NOTE | 2018-12-28 11:57 | PN ---
Teaching Attending Note Name of Resident: Morales Owens ATTENDING PHYSICIAN STATEMENT I saw and evaluated the patient. I reviewed the resident's note and discussed the case with the resident. I agree with the resident's findings and plan as documented. SUBJECTIVE: No fever or chills. No ALCALA . He feels much better today. pain in foot is better OBJECTIVE: NAD, awake, alert, cooperative HEENT: MMM, everted L lower eye lid. CV: irreg irreg, no MRG . Lungs: CTAB Ext: R leg and foot with improved erythema.hyperpigmentation on leg, minimal tenderness on plantar R foot . LLE hyperpigmentation ASSESSMENT AND PLAN: 83 y/o man with h/o HTN, Dm, CAD, s/p [place], DVT, A fib, BPH, skin cancer, hearing difficulty, and chronic LE erythema and edema who presented with worsening pain in R leg and foot x past 2 weeks 1- Cellullitis of R LE: improved - day 6 of IV abx. - will d/w ID choice of PO abx and duration 2- DM: - A1c 4.9 . has not been needing insulin here. - [place] dc his home insulin at [place]. due to the high risk of hypoglycemia in this fragile elderly man.hold off on starting metformin due to GFR on the edge ( 46%) . he will be advised to check his sugar daily in am , and report to his MD. A1c will need to be followed as otu pt. later in future, an oral agent might need to be started 3-CKD: Cr at base line - cont lasix - cont 2.5 of lisinopril daily 5- H/o A fib: on coumadin - cont coumadin at 6 mg QPM (day 3). INR 1.8 - need INR in 2-3 days. Goal 2-3 - cont toprol Dispo: Dc today. PT pending for today. PAtietn feels he deos not need rehab and wants to go back to [place].
--- NOTE | 2018-12-28 13:52 | PN ---
Progress Note, Physician Chief Complaint: AWAKE, ALERT OOB IN CHAIR NO C/O LEG PAIN NO ACUTE DISTRESS AFEBRILE - Current Medication List Current Medications: Active Medications Ascorbic Acid (Vitamin C -) 500 mg PO DAILY [facility] Last Admin: 12/28/18 10:36 Dose: 500 mg Aspirin (Asa -) 81 mg PO DAILY [facility] Last Admin: 12/28/18 10:36 Dose: 81 mg Cephalexin HCl (Keflex -) 500 mg PO BID [facility] Gabapentin (Neurontin -) 300 mg PO DAILY [facility] Last Admin: 12/28/18 10:36 Dose: 300 mg Insulin Aspart (Novolog Vial Sliding Scale -) 1 vial SQ TIDAC [facility]; Protocol Last Admin: 12/28/18 12:05 Dose: Not Given Levothyroxine Sodium (Synthroid -) 112 mcg PO DAILY@0700 [facility] Last Admin: 12/28/18 06:16 Dose: 112 mcg Lisinopril (Prinivil) 2.5 mg PO DAILY [facility] Last Admin: 12/28/18 10:36 Dose: 2.5 mg Metoprolol Succinate (Toprol Xl -) 50 mg PO DAILY [facility] Last Admin: 12/28/18 10:37 Dose: 50 mg Multivitamins/Minerals (Theragran-M) 1 each PO DAILY [facility] Last Admin: 12/28/18 10:36 Dose: 1 each Oxycodone HCl (Roxicodone -) 5 mg PO Q6H PRN PRN Reason: PAIN LEVEL 6-10 Warfarin Sodium (Coumadin -) 6 mg PO DAILY@1800 [facility] Last Admin: 12/27/18 17:48 Dose: 6 mg - Objective Vital Signs: Vital Signs Temperature 97.7 F 12/28/18 10:34 Pulse Rate 87 12/28/18 10:34 Respiratory Rate 20 12/28/18 10:34 Blood Pressure 125/65 12/28/18 10:34 O2 Sat by Pulse Oximetry (%) 100 12/27/18 21:00 Constitutional: Yes: No Distress Eyes: Yes: Conjunctiva Clear Cardiovascular: Yes: Regular Rate and Rhythm, S1, S2 Respiratory: Yes: CTA Bilaterally Gastrointestinal: Yes: Normal Bowel Sounds, Soft. No: Tenderness Extremities: Yes: Other (+ CHRONIC VENOUS STASIS DERMATITIS; ERYTHEMA/ WARMTH R LE REOLVED; DRY ULCER DORSUM OF FOOT) Labs: CBC, BMP 12/28/18 07:10 12/27/18 07:13 INR, PTT INR 1.89 (0.83-1.09) H 12/28/18 08:00 Assessment/Plan CELLULITIS R LE CHRONIC VENOUS STASIS DERMATITIS AZOTEMIA NIDDM SUBSTITUTE KEFLEX 500MG PO BID X 7D
[2018-12-28] MEDS: CEPHALEXIN MONOHYDRATE 500 MG CAPSULE (UD) PO SCH ×2 (14:56→21:14)
--- NOTE | 2018-12-28 15:25 | DS ---
Physical Exam: SUBJECTIVE: Patient seen and examined. Pt remains stable, asymptomatic, afebrile , w/o any c/o or further issues. Pt denies f/c/n/v/d/ chest pain, shortness of breath, numbness or tingling. OBJECTIVE: Vital Signs Period Temp Pulse Resp BP Sys/Quarles Pulse Ox Last 24 Hr 97.6 F-98.0 F 52-87 18-20 118-150/58-71 100 PHYSICAL EXAM GENERAL: The patient is awake, alert, and fully oriented, in no acute distress. EYES: PERRL, extraocular movements intact ENT: moist mucous membranes. NECK: supple. No LAD, no carotid bruit LUNGS: Breath sounds equal, clear to auscultation bilaterally, no wheezes, no crackles HEART: Regular rate and irregular rhythm, S1, S2 without murmur, rub or gallop. ABDOMEN: Distended, Soft, nontender, normoactive bowel sounds, no guarding EXTREMITIES: 2+ pulses, warm, RLE: erythematous, swollen, and dry w/ ulceration on the plantar surface, medial ankle and posterior leg. LLE: erythamatous, swollen NEUROLOGICAL: Cranial nerves II through XII grossly intact. Unable to move the RLE toes, but sensation is intact SKIN: Warm, dry, normal turgor, LABS Laboratory Results - last 24 hr CBC,CMP WBC 4.7 K/mm3 (4.0-10.0) 12/28/18 07:10 RBC 3.57 M/mm3 (4.00-5.60) L 12/28/18 07:10 Hgb 11.3 GM/dL (11.7-16.9) L 12/28/18 07:10 Hct 33.2 % (35.4-49) L 12/28/18 07:10 MCV 93.0 fl (80-96) 12/28/18 07:10 MCH 31.6 pg (25.7-33.7) 12/28/18 07:10 MCHC 33.9 g/dl (32.0-35.9) 12/28/18 07:10 RDW 15.1 % (11.9-15.9) 12/28/18 07:10 Plt Count 201 K/MM3 (134-434) 12/28/18 07:10 MPV 7.6 fl (7.5-11.1) 12/28/18 07:10 Absolute Neuts (auto) 2.9 K/mm3 (1.5-8.0) 12/28/18 07:10 Neutrophils % 62.4 % (42.8-82.8) 12/28/18 07:10 Lymphocytes % 24.6 % (8-40) 12/28/18 07:10 Monocytes % 7.9 % (3.8-10.2) 12/28/18 07:10 Eosinophils % 4.3 % (0-4.5) 12/28/18 07:10 Basophils % 0.8 % (0-2.0) 12/28/18 07:10 Nucleated RBC % 0 % (0-0) 12/28/18 07:10 ESR 55 mm/hr (0-20) H 12/23/18 11:51 Sodium 141 mmol/L (136-145) 12/27/18 07:13 Potassium 4.2 mmol/L (3.5-5.1) 12/27/18 07:13 Chloride 109 mmol/L (98-107) H 12/27/18 07:13 Carbon Dioxide 25 mmol/L (21-32) 12/27/18 07:13 Anion Gap 7 MMOL/L (8-16) L 12/27/18 07:13 BUN 19.8 mg/dL (7-18) H 12/27/18 07:13 Creatinine 1.4 mg/dL (0.55-1.3) H 12/27/18 07:13 Est GFR (CKD-EPI)AfAm 53.85 12/27/18 07:13 Est GFR (CKD-EPI)NonAf 46.46 12/27/18 07:13 POC Glucometer 109 UNITS (80-120) 12/28/18 12:04 Random Glucose 89 mg/dL (74-106) 12/27/18 07:13 Hemoglobin A1c % 4.9 % (4.2-6.3) 12/28/18 07:10 Lactic Acid 1.0 mmol/L (0.4-2.0) 12/23/18 11:51 Calcium 8.5 mg/dL (8.5-10.1) 12/27/18 07:13 Total Bilirubin 0.4 mg/dL (0.2-1) 12/27/18 07:13 AST 20 U/L (15-37) 12/27/18 07:13 ALT 18 U/L (13-61) 12/27/18 07:13 Alkaline Phosphatase 93 U/L (45-117) 12/27/18 07:13 C-Reactive Protein 5.7 MG/DL (0.00-0.3) H 12/23/18 11:51 Total Protein 6.0 g/dl (6.4-8.2) L 12/27/18 07:13 Albumin 3.1 g/dl (3.4-5.0) L 12/27/18 07:13 Current Medications Ascorbic Acid (Vitamin C -) 500 mg PO DAILY [facility] Last Admin: 12/28/18 10:36 Dose: 500 mg Aspirin (Asa -) 81 mg PO DAILY [facility] Last Admin: 12/28/18 10:36 Dose: 81 mg Cephalexin HCl (Keflex -) 500 mg PO BID [facility] Last Admin: 12/28/18 14:56 Dose: 500 mg Gabapentin (Neurontin -) 300 mg PO DAILY [facility] Last Admin: 12/28/18 10:36 Dose: 300 mg Insulin Aspart (Novolog Vial Sliding Scale -) 1 vial SQ TIDAC [facility]; Protocol Last Admin: 12/28/18 12:05 Dose: Not Given Levothyroxine Sodium (Synthroid -) 112 mcg PO DAILY@0700 [facility] Last Admin: 12/28/18 06:16 Dose: 112 mcg Lisinopril (Prinivil) 2.5 mg PO DAILY [facility] Last Admin: 12/28/18 10:36 Dose: 2.5 mg Metoprolol Succinate (Toprol Xl -) 50 mg PO DAILY [facility] Last Admin: 12/28/18 10:37 Dose: 50 mg Multivitamins/Minerals (Theragran-M) 1 each PO DAILY [facility] Last Admin: 12/28/18 10:36 Dose: 1 each Oxycodone HCl (Roxicodone -) 5 mg PO Q6H PRN PRN Reason: PAIN LEVEL 6-10 Warfarin Sodium (Coumadin -) 6 mg PO DAILY@1800 [facility] Last Admin: 12/27/18 17:48 Dose: 6 mg Home Medications Medication Instructions Recorded Ascorbic Acid 500 mg PO DAILY 12/23/18 Aspirin 81 mg PO DAILY 12/23/18 Furosemide [Lasix] 20 mg PO DAILY 12/23/18 Gabapentin [Neurontin] 300 mg PO DAILY 12/23/18 Levothyroxine [Synthroid -] 112 mcg PO AM 12/23/18 Metoprolol Succinate 50 mg PO DAILY 12/23/18 Multivit-Min/Iron/Folic Acid/K 1 tab PO DAILY 12/23/18 [Multi-Day Plus Minerals Tablet] Oxycodone HCl/Acetaminophen 1 tab PO DAILY 12/23/18 [Percocet 5-325 mg Tablet] Cephalexin Monohydrate [Keflex -] 500 mg PO BID #14 capsule 12/28/18 Lisinopril [Prinivil] 2.5 mg PO DAILY #30 tablet 12/28/18 Warfarin Na [Coumadin -] 6 mg PO DAILY@1800 #60 tablet 12/28/18 Microbiology 12/23/18 11:51 Blood - Peripheral Venous Blood Culture - Final NO GROWTH AFTER 5 DAYS INCUBATION 12/23/18 11:51 Blood - Peripheral Venous Blood Culture - Final NO GROWTH AFTER 5 DAYS INCUBATION HOSPITAL COURSE: Date of Admission:12/23/18 83M w/ pmhx significant for HTN, IDDM, Afib on coumadin, CAD, OR, BPH, dementia , DVT, malignant neoplasm of the skin, difficulty hearing presents from [facility] for worsening RLE pain. Pt was found to have cellulitis of his RLE and was started on abx. Pt was worked up with X rays and MRI of his foot which revealed no osteomyelitis or abscess. Pt was also found to have a distended abdomen, for which a CT a/p revealed no findings except for a enlarged prostate with calcification. Pt was treated with vanc and ceftriaxone , along with debridement. Wound care managed the wound and pt's cellulitis resolved. Pt symptoms improved significantly. Pt was discharged on keflex 500 BID for 7 days, lisinopril and coumadin. X rays of the foot- no acute changes MRI of the foot- cellulitis, no abscess CT a/p- enlarged prostate with calcification. No bowel pathology seen #RLE cellulitis; WBC wnl, afebrile, no tachy Given empiric IV Vanc D4 and ceftriaxone D3- as per ID R knee and foot xray- negative MRI of LE- Cellulitis present, no osteomyelitis or abscess seen Wound care consulted- no surgery at this time, continue abx as per med/ID, would recommend compression dressing once cellulitis resolved, for now just do dry clean dressing. f/u outpt at the [facility] wound clinic Date of Discharge: 12/28/18 Minutes to complete discharge: 35 Discharge Summary Problems reviewed: Yes Reason For Visit: CELLULITIS Current Active Problems Venous stasis dermatitis of right lower extremity (Chronic) Condition: Improved - Instructions Diet, Activity, Other Instructions: You were admitted for an infection of your right foot. While you were in the hospital, we evaluated you with lab work, blood work, imaging including x rays, ultrasounds and MRI of your foot. We treated your infection medically with antibiotics and surgically and your symptoms improved significantly. To complete treatment of your infection please take: Keflex 500 mg by mouth two times a day for 7 days Please stop taking insulin because your sugars are well controlled. Follow up with your primary care physician (in one week) . A1c is now 4.9. this needs to be repeated in 3 months, and your doctor will tell you if you need to start pills for diabetes. . At this time you need to check your sugar daily in morning and keep log and take it to your primary care doctor It is very important that you follow with your primary care physician to check your INR in three days. Please follow up with your termite treater helper for wound care of your feet in one week. Your coumadin dose is increased to 6 mg every evening You are on a new pill now called lisinopril . it is for BLood pressure and kidney protection . take it daily you need blood work BMP in 1 week after starting lisinopril to make sure your electrolytes and kidney function is at base line Follow up with your primary care physician in 1 week Return to the emergency room if you experience any chest pain, shortness of breath, nausea, vomiting or worsening of your condition. Cover right foot and lower leg with clean gauze daily until it heals or until instructed otherwise with your doctor place clean dry gauze between toes on right daily Referrals: Vu Montana MD [Staff Physician] - 1 Week Tank Florentino [Primary Care Provider] - 1 Week (re check sugars off medication and f/u INR) Disposition: VNS/HOME HEALTH CARE - Home Medications Comprehensive Discharge Medication List: Ambulatory Orders Ascorbic Acid 500 mg PO DAILY 12/23/18 Aspirin 81 mg PO DAILY 12/23/18 Furosemide [Lasix] 20 mg PO DAILY 12/23/18 Gabapentin [Neurontin] 300 mg PO DAILY 12/23/18 Levothyroxine [Synthroid -] 112 mcg PO AM 12/23/18 Metoprolol Succinate 50 mg PO DAILY 12/23/18 Multivit-Min/Iron/Folic Acid/K [Multi-Day Plus Minerals Tablet] 1 tab PO DAILY 12/23/18 Oxycodone HCl/Acetaminophen [Percocet 5-325 mg Tablet] 1 tab PO DAILY 12/23/18 Cephalexin Monohydrate [Keflex -] 500 mg PO BID #14 capsule 12/28/18 Lisinopril [Prinivil] 2.5 mg PO DAILY #30 tablet 12/28/18 Warfarin Na [Coumadin -] 6 mg PO DAILY@1800 #60 tablet 12/28/18 This patient is new to me today: Yes Date on this admission: 12/28/18 Emergency Visit: Yes ED Registration Date: 12/23/18 Care time: The patient presented to the Emergency Department on the above date and was hospitalized for further evaluation of their emergent condition. Critical Care patient: No - Discharge Referral Referred to [facility] Med P.C.: No ATTENDING PHYSICIAN STATEMENT I saw and evaluated the patient. I reviewed the resident's note and discussed the case with the resident. I agree with the resident's findings and plan as documented. SUBJECTIVE: OBJECTIVE: ASSESSMENT AND PLAN:
[2018-12-28] MEDS: WARFARIN NA 3 MG TABLET PO SCH (17:50)
[2018-12-28] MEDS: SILVER SULFADIAZINE 1% TOP CREAM 400 GM JAR TP SCH (21:14)
[2018-12-29] MEDS: LEVOTHYROXINE NA 112 MCG TABLET (FP) PO SCH (06:16)
[2018-12-29] MEDS: INSULIN SLIDING SCALE (NOVOLOG) 1 VIAL SQ SCH ×2 (06:16→11:59)
[2018-12-29] MEDS: GABAPENTIN 300 MG CAPSULE (FP) PO SCH (10:55)
[2018-12-29] MEDS: MULTIVITAMINS THER W-MINERALS COMBO TABLET (FP) PO SCH (10:55)
[2018-12-29] MEDS: LISINOPRIL 5 MG TABLET (FP) PO SCH (10:55)
[2018-12-29] MEDS: ASPIRIN 81 MG CHEWABLE TABLETS PO SCH (10:55)
[2018-12-29] MEDS: ASCORBIC ACID 500 MG TABLET (FP) PO SCH (10:55)
[2018-12-29] MEDS: CEPHALEXIN MONOHYDRATE 500 MG CAPSULE (UD) PO SCH (10:55)
[2018-12-29] MEDS: SILVER SULFADIAZINE 1% TOP CREAM 400 GM JAR TP SCH (11:02)
[2018-12-29 11:45] VITALS: BP 152/82; PULSE 82; TEMP 97.8
--- NOTE | 2018-12-29 18:39 | PN ---
Teaching Attending Note Name of Resident: Morales Owens ATTENDING PHYSICIAN STATEMENT I saw and evaluated the patient. I reviewed the resident's note and discussed the case with the resident. I agree with the resident's findings and plan as documented. SUBJECTIVE: shaving and washing up in bathroom. feels much better ASSESSMENT AND PLAN: 83 y/o man with h/o HTN, Dm, CAD, s/p MS, DVT, A fib, BPH, skin cancer, hearing difficulty, and chronic LE erythema and edema who presented with worsening pain in R leg and foot x past 2 weeks 1- Cellullitis of R LE: improved - cont po Abx after dc 2- DM: -taken off insulin due to low A1c. . A1c will need to be followed as out pt. later in future, an oral agent might need to be started 3-CKD: Cr at base line - cont lasix - cont 2.5 of lisinopril daily 5- H/o A fib: on coumadin - cont coumadin at 6 mg QPM - need INR in 2-3 days. Goal 2-3 - cont toprol Dc today. he was discharged yestrday but [facility] declined him . SNF arrangements were done
== END 2018-12-29 11:55 | DRG 603 ==
LOC: JER 10:27 → JERBED 15:47 → J5S 18:04
PROVIDERS: ADMIT Internal Medicine; ATTEND Internal Medicine
DX: L03.115 Cellulitis of right lower limb (principal); I10 Essential (primary) hypertension; I25.10 Atherosclerotic heart disease of native coronary artery without angina pectoris; N40.0 Benign prostatic hyperplasia without lower urinary tract symptoms; F03.90 Unspecified dementia, unspecified severity, without behavioral disturbance, psychotic disturbance, mood disturbance, and anxiety; I48.91 Unspecified atrial fibrillation; I87.2 Venous insufficiency (chronic) (peripheral); N18.9 Chronic kidney disease, unspecified; E11.40 Type 2 diabetes mellitus with diabetic neuropathy, unspecified
CPT/HCPCS: 36415; 73590-TC-RT-FY; 73610-TC-RT-FY; 73630-TC-RT-FY; 73721-RT-TC; 74176-TC; 80048; 80053; 81003; 82962; 83036; 83605; 85025; 85610; 85651; 85730; 86140; 87040; 93005; 93010; 93925-TC; 93971-TC; 97116-GP; 97161-GP; 99284-25; G0480; J0131; Q9967